=== PATIENT | female | born 1965 | race Caucasian/White ===

== ENCOUNTER 2016-12-31 16:21 | Emergency (ER) | payer SELFPAY ==
[~2016-12-31] VITALS: Ht 175.3 cm; Wt 61.2 kg
[~2016-12-31 16:21] MED LIST: CIPR500T78 PO; CYCL10TA9 PO; IBUP-1773 PO; KETO-22 PO; ORPH100T PO; PHEN200T27 PO; TRM50T PO
[2016-12-31 17:05] LABS: KETONES,URINE NEGATIVE (NEGATIVE); LEUKOCYTE ESTERASE ,URINE NEGATIVE (NEGATIVE); NITRITE,URINE POSITIVE (NEGATIVE); PH,URINE 6 (5-9); PROTEIN,URINE NEGATIVE (NEGATIVE); UROBILINOGEN,URINE 4 MG/DL (NORMAL)
--- NOTE | 2016-12-31 17:06 | ED GU-Female ---
General Chief Complaint: -Female Stated Complaint: BACK PAIN Nursing Triage Note: PT CO OF R FLANK AND LOWER ABD PAIN STARTED EARLIER TODAY RATES PAIN 04/04 Nursing Sepsis Screen: No Definite Risk Source: patient, RN notes reviewed Exam Limitations: no limitations (YENIFER LAMBERT DO) History of Present Illness Time seen by provider: 17:06 Timing/Duration: this morning (YENIFER LAMBERT DO) Allergies and Home Medications Allergies Coded Allergies: No Known Drug Allergies (Unverified , 06/21/11) Home Medications Cefdinir 300 Mg Capsule, 300 MG PO BID, #20 Ref 0 Prescribed by: YENIFER LAMBERT on 12/31/16 1730 Hydrocodone/Acetaminophen 1 Each Tablet, 1 EACH PO Q6H, #20 Ref 0 Prescribed by: YENIFER LAMBERT on 12/31/16 1730 Ibuprofen 600 Mg Tablet, 600 MG PO 3 times a day PRN for PAIN, #90 Prescribed by: MANNY FIELD on 07/07/16 1042 Past Rmhywhc-Mltbaa-Gadrxp Hx Patient Social History Alcohol Use: Denies Use Recreational Drug Use: No Type Used: Electronic/Vapor Recent Foreign Travel: No Contact w/Someone Who Travel: No Recent Infectious Disease Expo: No Recent Hopitalizations: No (YENIFER LAMBERT DO) Surgeries HX Surgeries: Yes (2003 breast/partial hyst) (YENIFER LAMBERT DO) Respiratory Hx Respiratory Disorders: No (YENIFER LAMBERT DO) Cardiovascular Hx Cardiac Disorders: No (YENIFER LAMBERT DO) Neurological Hx Neurological Disorders: No (YENIFER LAMBERT DO) 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 System Hx 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 Disorders: No Sexually Transmitted Disease: No 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/AIDS: 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 (YENIFER LAMBERT DO) Genitourinary Hx Genitourinary Disorders: No (YENIFER LAMBERT DO) Gastrointestinal Hx Gastrointestinal Disorders: No (YENIFER LAMBERT DO) Musculoskeletal Hx Musculoskeletal Disorders: No (YENIFER LAMBERT DO) Endocrine Hx Endocrine Disorders: No (YENIFER LAMBERT DO) HEENT HX ENT Disorders: No Loss of Vision: Denies Hearing Impairment: Denies (YENIFER LAMBERT DO) Cancer Cancer: Breast (YENIFER LAMBERT DO) Psychosocial Hx Psychiatric Problems: No (YENIFER LAMBERT DO) Integumentary HX Skin/Integumentary Disorder: No (YENIFER LAMBERT DO) Blood Transfusions Hx Blood Disorders: No Adverse Reaction to a Blood Tr: No (YENIFER LAMBERT DO) Family Medical History Significant Family History: No Pertinent Family Hx (YENIFER LAMBERT DO) Physical Exam Vital Signs Vital Sign - Last 12Hours 12/31/16 16:45 Temp 98.0 Pulse 81 Resp 20 B/P (MAP) 120/84 Pulse Ox 98 (MELO MACIAS DO) Vital Signs Capillary Refill : Less Than 3 Seconds (YENIFER LAMBERT DO) Progress/Results/Core Measures Results/Orders Lab Results Laboratory Tests Test 12/31/16 16:45 Range/Units Urine Color RED H Urine Clarity CLEAR Urine pH 6 5-9 Urine Specific [place] 1.020 1.016-1.022 Urine Protein NEGATIVE NEGATIVE Urine Glucose (UA) NEGATIVE NEGATIVE Urine Ketones NEGATIVE NEGATIVE Urine Nitrite POSITIVE H NEGATIVE Urine Bilirubin 2+ H NEGATIVE Urine Urobilinogen 4 H NORMAL MG/DL Urine Leukocyte Esterase NEGATIVE NEGATIVE Urine RBC (Auto) NEGATIVE NEGATIVE Urine RBC NONE /HPF Urine WBC RARE /HPF Urine Squamous Epithelial Cells 2-5 /HPF Urine Crystals NONE /LPF Urine Bacteria TRACE /HPF Urine Casts NONE /LPF Urine Mucus NEGATIVE /LPF Urine Culture Indicated YES (MELO MACIAS DO) Medications Given in ED Current Medications Medications Dose Ordered Sig/Edwar Route Start Time Stop Time Status Last Admin Dose Admin Ketorolac Tromethamine 60 mg ONCE ONCE IM 12/31/16 17:30 12/31/16 17:31 DC 12/31/16 17:37 60 MG (CHANDLER MACIASA Tylor MCDONALD) Vital Signs/I&O Vital Sign - Last 12Hours 12/31/16 12/31/16 16:45 18:37 Temp 98.0 98.0 Pulse 81 81 Resp 20 20 B/P (MAP) 120/84 Pulse Ox 98 98 (CHANDLER MACIASA Tylor MCDONALD) Blood Pressure Mean: 96 Progress Note : Progress Note 1800--ASSUMED CARE FROM DR. LAMBERT, CT RESULTS PENDING. IF NEGATIVE, ALL DISCHARGE INSTRUCTIONS AND RX'S HAVE BEEN COMPLETED BY DR. LAMBERT PRIOR TO MY ARRIVAL. (MELO MACIAS DO) Diagnostic Imaging Comments CT ABDOMEN/PELVIS--NO ACUTE PROCESS, CONSTIPATION, PER RADIOLOGIST REPORT @ 1825 Reviewed: Reviewed by Me (MELO MACIAS DO) Departure Impression Impression: Primary Impression: Urinary tract infection Additional Impression: Abdominal pain Disposition: HOME, SELF-CARE Condition: Stable Departure-Patient Inst. Referrals: DESI MITCHELL MD Patient Instructions: Urinary Tract Infection, Adult (DC) Scripts Hydrocodone/Acetaminophen (Hydrocodon-Acetaminophn 10-325) 1 Each Tablet 1 EACH PO Q6H for Pain, #20 TAB 0 Refills Prov: YENIFER LAMBERT DO 12/31/16 Cefdinir (Cefdinir) 300 Mg Capsule 300 MG PO BID for UTI, #20 CAP 0 Refills Prov: YENIFER LAMBERT DO 12/31/16 YENIFER LAMBERT DO December 31, 2016 17:06 MELO MACIAS DO December 31, 2016 18:40
[2016-12-31 17:16] LABS: BILIRUBIN,URINE 2+ (NEGATIVE); WBC,URINE RARE /HPF
[2016-12-31] MEDS ORDERED: HYDR-3820 PO (17:30)
[2016-12-31] MEDS ORDERED: KETOROLAC 60 MG/2 ML VIAL IM ONE (17:30)
[2016-12-31] MEDS ORDERED: CEFD300C3 PO (17:30)
--- NOTE | 2016-12-31 18:17 | Diagnostic Imaging Report ---
PROCEDURE: CT urinary tract, rule out kidney stone. TECHNIQUE: Multiple contiguous axial images were obtained through the abdomen and pelvis without the use of intravenous contrast. DATE: December 31, 2016. COMPARISON: Abdominal radiographs, October 23, 2013. CT abdomen and pelvis, October 23, 2013. INDICATION: A 51-year-old female, left lower quadrant abdominal and back pain. FINDINGS: There are limitations for parenchymal organ assessment as well as for assessment of the vasculature relating to the lack of intravenous contrast. The visualized portions of the lung bases are clear. The heart is not enlarged. There is no pericardial effusion. The liver is normal in size and contour. The gallbladder is contracted. There is no intrahepatic or extrahepatic bile duct dilation. Very limited evaluation of the pancreatic parenchyma is grossly unremarkable. The spleen is not enlarged. The adrenal glands are unremarkable. Unremarkable noncontrast appearance of the renal parenchyma. The urinary collecting systems are not distended. There is no identified renal or ureteral stone. There are pelvic calcifications, likely relating to phleboliths. The urinary bladder is unremarkable in appearance. The uterus is not seen and may be surgically absent. There is a moderate-volume stool within the rectum and distal sigmoid colon which are mildly distended. There is zvkb-br-eyqezhgo additional volume colonic stool. The additional segments of the intestinal tract are not distended. The appendix is best seen on axial image 111. There is no evidence of acute appendicitis. There is a fat-containing umbilical hernia. There is no free intraperitoneal air. There is no drainable fluid collection. There is no free pelvic fluid. There is no identified abnormally enlarged lymph node within the abdomen or pelvis which meets CT size criteria for adenopathy. There is transitional lumbosacral anatomy with partial lumbarization of L5. 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 If spinal intervention is to be performed in the future, recommend careful correlation with levels. There is no identified acute bony abnormality. There is gas in the left gluteal subcutaneous tissues which may relate to a subcutaneous injection. Recommend correlation clinically. IMPRESSION: CT ABDOMEN AND PELVIS. 1. No identified acute abnormality within the abdomen or pelvis. 2. Gas in the left gluteal subcutaneous tissues which may relate to subcutaneous injection. Recommend correlation clinically. 3. Moderate-volume stool in the rectum and distal sigmoid colon which are mildly distended. Additional qwao-lv-spycbuov-volume colonic stool. 4. Transitional lumbosacral anatomy. Dictated by: Dictated on workstation # [id number]
[2016-12-31 18:37] VITALS: BP 120/84
== END 2016-12-31 18:38 | disposition home or self-care (01) ==
LOC: EDUNIT# 16:21 → ER 16:24
DX: R10.31 Right lower quadrant pain (principal); N39.0 Urinary tract infection, site not specified; K59.00 Constipation, unspecified
CPT/HCPCS: 74176; 81000; 87088; 96372; 99282

== ENCOUNTER 2017-05-04 11:13 | Emergency (ER) | payer OTHER ==
[~2017-05-04] VITALS: Ht 172.7 cm; Wt 65.8 kg
[~2017-05-04 11:13] MED LIST changes: +CEFD300C3 PO; +HYDR-3820 PO
[2017-05-04] MEDS ORDERED: diphenhydrAMINE 50 MG/ML INJ (BENADRYL) ONE (11:18)
[2017-05-04] MEDS ORDERED: methylPREDNISolone 125 MG (Solu-MEDROL) VIAL ONE (11:18)
[2017-05-04] MEDS ORDERED: FAMOTIDINE 20MG/2ML IV (PEPCID) ONE (11:18)
[2017-05-04] MEDS ORDERED: EPINEPHrine INJECTION 1 MG/ML AMP ONE (11:18)
[2017-05-04] MEDS ORDERED: diphenhydrAMINE 50 MG/ML INJ (BENADRYL) IVP ONE (11:30)
[2017-05-04] MEDS ORDERED: methylPREDNISolone 125 MG (Solu-MEDROL) VIAL IVP ONE (11:30)
[2017-05-04] MEDS ORDERED: EPINEPHrine INJECTION 1 MG/ML AMP IM ONE (11:30)
[2017-05-04] MEDS ORDERED: FAMOTIDINE 20MG/2ML IV (PEPCID) IVP ONE (11:30)
--- NOTE | 2017-05-04 12:00 | ED Integumentary General ---
General Chief Complaint: Allergic Reaction Stated Complaint: ALLERGIC RXN Source: patient History of Present Illness Time seen by provider: 11:20 Initial Comments PT ARRIVES VIA POV FROM HOME C/O GENERALIZED RASH, ITCHING X 15 MINUTES C/O THROAT TIGHTNESS AND SHORTNESS OF BREATH ALSO STATES HER EYES HURT/BURN SYMPTOMS BEGAN A FEW MINUTES AFTER TAKING BACTRIM--STATES SHE WOKE UP WITH LEFT FLANK PAIN AND THOUGHT SHE WAS HAVING A UTI, SO TOOK "LEFTOVER" BACTRIM FROM PREVIOUS UTI. ALSO TOOK AND ADVIL BEFORE SHE TOOK THE BACTRIM. NO SWELLING TO TONGUE, LIPS, HANDS OR FEET NO HISTORY OF SIMILAR NO PCP Allergies and Home Medications Allergies Coded Allergies: sulfamethoxazole (Verified Allergy, Unknown, anaphylaxis, 05/04/17) trimethoprim (Verified Allergy, Unknown, anaphylaxis, 05/04/17) Home Medications Cefdinir 300 Mg Capsule, 300 MG PO BID, #20 Ref 0 Prescribed by: YENIFER LAMBERT on 12/31/16 1730 Hydrocodone/Acetaminophen 1 Each Tablet, 1 EACH PO Q6H, #20 Ref 0 Prescribed by: YENIFER LAMBERT on 12/31/16 1730 Ibuprofen 600 Mg Tablet, 600 MG PO 3 times a day PRN for PAIN, #90 Prescribed by: MANNY FIELD on 07/07/16 1042 Nitrofurantoin Monohyd/M-Cryst 100 Mg Capsule, 100 MG PO BID, #20 Prescribed by: MELO MACIAS on 05/04/17 1306 Prednisone 10 Mg Tab, 40 MG PO DAILY, #12 Prescribed by: MELO MACIAS on 05/04/17 1239 Constitutional: no symptoms reported EENTM: see HPI, No nose congestion Respiratory: see HPI, short of breath, No wheezing Cardiovascular: no symptoms reported Gastrointestinal: no symptoms reported Genitourinary: no symptoms reported Musculoskeletal: see HPI, back pain Skin: see HPI, pruritus, rash Psychiatric/Neurological: No Symptoms Reported Endocrine: No Symptoms Reported Hematologic/Lymphatic: No Symptoms Reported Past Djkuwpv-Pgpikh-Ycaxmc Hx Patient Social History Alcohol Use: Denies Use Recreational Drug Use: No Smoking Status: Current Everyday Smoker Type Used: Electronic/Vapor Recent Hopitalizations: No Surgeries History of Surgeries: Yes (2003 BREAST LUMPECTOMY; HYST/BSO) Surgeries: Breast, Hysterectomy, Oophorectomy Respiratory History of Respiratory Disorde: No Cardiovascular History of Cardiac Disorders: No Neurological History of Neurological Disord: No 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 System Hx 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 Disorders: No Sexually Transmitted Disease: No 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 Genitourinary History of Genitourinary Disor: Yes Genitourinary Disorders: Bladder Infection Gastrointestinal History of Gastrointestinal Di: No Musculoskeletal History of Musculoskeletal Dis: No Endocrine History of Endocrine Disorders: No HEENT Loss of Vision: Denies Hearing Impairment: Denies Cancer History of Cancer: Yes (BREAST CANCER 2003--S/P LUMPECTOMY + RADIATION.) Cancer: Breast Type of Tx Receive: Radiation, Surgical Intervention Psychosocial History of Psychiatric Problem: No Integumentary History of Skin or Integumenta: No Blood Transfusions History of Blood Disorders: No Adverse Reaction to a Blood Tr: No Family Medical History Significant Family History: No Pertinent Family Hx Physical Exam Vital Signs Vital Sign - Last 12Hours 05/04/17 11:14 Temp 98.7 Pulse 130 Resp 18 B/P (MAP) 138/70 Pulse Ox 98 Capillary Refill : General Appearance: WD/WN, no apparent distress HEENT: PERRL/EOMI, normal ENT inspection, TMs normal, pharynx normal Neck: normal inspection Cardiovascular: tachycardia Respiratory: normal breath sounds, no respiratory distress, no accessory muscle use Gastrointestinal: normal bowel sounds, non tender, soft Back: normal inspection Extremities: no pedal edema, normal capillary refill Neurologic/Psychiatric: 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 ) Progress/Results/Core Measures Results/Orders Lab Results Laboratory Tests Test 05/04/17 12:40 Range/Units Urine Color YELLOW Urine Clarity SLIGHTLY CLOUDY Urine pH 8 5-9 Urine Specific [place] 1.015 L 1.016-1.022 Urine Protein NEGATIVE NEGATIVE Urine Glucose (UA) NEGATIVE NEGATIVE Urine Ketones NEGATIVE NEGATIVE Urine Nitrite NEGATIVE NEGATIVE Urine Bilirubin NEGATIVE NEGATIVE Urine Urobilinogen NORMAL NORMAL MG/DL Urine Leukocyte Esterase 2+ H NEGATIVE Urine RBC (Auto) NEGATIVE NEGATIVE Urine RBC NONE /HPF Urine WBC RARE /HPF Urine Crystals NONE /LPF Urine Amorphous Sediment RARE MASOOD PHOSPHATE H /LPF Urine Bacteria TRACE /HPF Urine Casts NONE /LPF Urine Mucus NEGATIVE /LPF Urine Culture Indicated NO My Orders Orders - MELO MACIAS DO Diphenhydramine Injection (Benadryl Inje (05/04/17 11:18) Epinephrine 1 Mg Injection (Adrenalin I (05/04/17 11:18) Methylprednisolone Sod Succ (Solu-Medrol (05/04/17 11:18) Famotidine Injection (Pepcid Injection) (05/04/17 11:18) Saline Lock/Iv-Start (05/04/17 11:21) Epinephrine 1 Mg Injection (Adrenalin I (05/04/17 11:30) Methylprednisolone Sod Succ (Solu-Medrol (05/04/17 11:30) Diphenhydramine Injection (Benadryl Inje (05/04/17 11:30) Famotidine Injection (Pepcid Injection) (05/04/17 11:30) Saline Lock/Iv-Start (05/04/17 11:21) Monitor-Rhythm Ecg Trace Only (05/04/17 11:21) Ua Culture If Indicated (05/04/17 11:54) Urine Culture (05/04/17 13:05) Medications Given in ED Current Medications Medications Dose Ordered Sig/Edwar Route Start Time Stop Time Status Last Admin Dose Admin Diphenhydramine HCl 50 mg ONCE ONCE IVP 05/04/17 11:30 05/04/17 11:31 DC 05/04/17 11:43 50 MG Epinephrine HCl 0.3 mg ONCE ONCE IM 05/04/17 11:30 05/04/17 11:31 DC 05/04/17 11:37 0.3 MG Famotidine 40 mg ONCE ONCE IVP 05/04/17 11:30 05/04/17 11:31 DC 05/04/17 11:43 40 MG Methylprednisolone Sodium Succinate 125 mg ONCE ONCE IVP 05/04/17 11:30 05/04/17 11:31 DC 05/04/17 11:44 125 MG Vital Signs/I&O Vital Sign - Last 12Hours 05/04/17 05/04/17 11:14 11:37 Temp 98.7 96.5 Pulse 130 Resp 18 B/P (MAP) 138/70 Pulse Ox 98 Progress Note : Progress Note ALL SYMPTOMS COMPLETELY RESOLVED AT DISMISSAL Departure Impression Impression: Primary Impression: ALLERGIC REACTION TO BACTRIM Additional Impression: Urinary tract infectious disease Disposition: HOME, SELF-CARE Condition: Improved Departure-Patient Inst. Referrals: NO,LOCAL PHYSICIAN (PCP/Family) Primary Care Physician Patient Instructions: Drug Allergy, Urinary Tract Infection, Adult (DC) Add. Discharge Instructions: LOTS OF CLEAR LIQUIDS CLARITIN 10 MG IN AM. BENADRYL 50 MG IN PM NEEDED FOR RASH AND ITCHING STOP BACTRIM FOLLOW UP WITH DR OF CHOICE TOMORROW IF NO BETTER RETURN TO ER IF WORSE All discharge instructions reviewed with patient and/or family. Voiced understanding. Scripts Nitrofurantoin Monohyd/M-Cryst (Macrobid 100 mg Capsule) 100 Mg Capsule 100 MG PO BID, #20 CAP Prov: MELO MACIAS DO 05/04/17 Prednisone (Prednisone) 10 Mg Tab 40 MG PO DAILY, #12 TAB Prov: MELO MACIAS DO 05/04/17 MELO MACIAS DO May 04, 2017 12:00
[2017-05-04] MEDS ORDERED: PRD10T PO (12:39)
[2017-05-04 12:45] LABS: BILIRUBIN,URINE NEGATIVE (NEGATIVE); KETONES,URINE NEGATIVE (NEGATIVE); LEUKOCYTE ESTERASE ,URINE 2+ (NEGATIVE); NITRITE,URINE NEGATIVE (NEGATIVE); PH,URINE 8 (5-9); PROTEIN,URINE NEGATIVE (NEGATIVE); UROBILINOGEN,URINE NORMAL (NORMAL)
[2017-05-04 12:53] LABS: WBC,URINE RARE /HPF
[2017-05-04] MEDS ORDERED: NITR-65 PO (13:06)
[2017-05-04 13:20] VITALS: BP 118/68
== END 2017-05-04 13:20 | disposition home or self-care (01) ==
LOC: EDUNIT# 11:13 → ER 11:14
DX: T36.8X1A Poisoning by other systemic antibiotics, accidental (unintentional), initial encounter (principal); N39.0 Urinary tract infection, site not specified; F17.290 Nicotine dependence, other tobacco product, uncomplicated; Z85.3 Personal history of malignant neoplasm of breast; Z92.3 Personal history of irradiation; Z90.710 Acquired absence of both cervix and uterus
CPT/HCPCS: 81000; 87088; 87186; 93041; 96372; 96374; 96375

== ENCOUNTER → 2017-06-05 | Outpatient (CLI) | payer OTHER ==
[~2017-06-05] MED LIST changes: +NITR-65 PO; +PRD10T PO
--- NOTE | 2017-06-06 16:32 | Diagnostic Imaging Report ---
EXAMINATION: Bilateral screening mammogram 2D views with tomosynthesis. The current study was also evaluated with a Computer Aided Detection (CAD) system. INDICATION: Screening. No current complaints stated on the questionnaire. COMPARISON: 05/02/16. FINDINGS: The breasts are composed of heterogenously dense parenchyma which may decrease mammographic sensitivity. There are postsurgical changes seen in the left breast. Biopsy clip in the upper aspect of the right breast is seen. In the central posterior aspect of the left CC projection there is a 1 cm rounded asymmetry that is persistent on the tomographic evaluation with no definitive correlate on the right MLO view. The left breast demonstrates no significant change. IMPRESSION: Focal compression views and ultrasound evaluation for asymmetry along the posterior central aspect of the right CC projection. ACR BI-RADS Category 0: Incomplete. (Needs additional imaging evaluation). Result letter will be mailed to the patient. Note: At least 10% of breast cancer is not imaged by mammography. Dictated by: Dictated on workstation # [id number]
== END ==
LOC: RAD 15:00
PROVIDERS: ATTEND Nurse Practitioner Family
DX: Z12.31 Encounter for screening mammogram for malignant neoplasm of breast (principal)
CPT/HCPCS: 77067

== ENCOUNTER → 2017-06-17 | Outpatient (CLI) | payer OTHER ==
--- NOTE | 2017-06-17 20:30 | Diagnostic Imaging Report ---
EXAM: Right breast diagnostic mammogram. The current study was also evaluated with a Computer Aided Detection (CAD) system. INDICATION: Asymmetry along the CC projection central aspect. FINDINGS: Focal compression view demonstrates persistence of asymmetry of the central posterior aspect of the right CC projection with no definitive correlative on this collateral view. The asymmetry persists on tomography as well without definitive mass confirmed. IMPRESSION: Persistent oval asymmetry along the central posterior aspect of the right CC projection. Ultrasound evaluation pending. BI-RADS 0. ACR BI-RADS Category 0: Incomplete. (Needs additional imaging evaluation). Result letter will be mailed to the patient. Note: At least 10% of breast cancer is not imaged by mammography. Dictated by: Dictated on workstation # [id number]
--- NOTE | 2017-06-17 21:36 | Diagnostic Imaging Report ---
EXAM: Right breast ultrasound. INDICATION: Asymmetry seen in mammography in the right breast central aspect. FINDINGS: At the 12 o'clock zone, there is a simple cyst measuring 1.1 cm and adjacent smaller simple cysts also seen. This is located at 3 cm from the nipple. At the 9:30 o'clock position, 2 cm from the nipple, there is a circumscribed hypoechoic lesion with through-transmission and no internal vascularity suggestive of a cyst with internal debris. There is otherwise no suspicious mass noted in the 4 quadrants and retroareolar region of the right breast. IMPRESSION: Cysts at 12 o'clock zone probably explain the mammographic asymmetry with no suspicious mass identified. Annual screening mammogram is recommended. BI-RADS 2. ACR BI-RADS Category 2: Benign findings. Result letter will be mailed to the patient. Note: At least 10% of breast cancer is not imaged by mammography. Dictated by: Dictated on workstation # [id number]
== END ==
LOC: RAD 14:00
PROVIDERS: ATTEND Nurse Practitioner Family
DX: N60.01 Solitary cyst of right breast (principal)
CPT/HCPCS: 76641

== ENCOUNTER 2018-04-28 17:23 | Emergency (ER) | payer OTHER ==
[~2018-04-28] VITALS: Ht 175.3 cm; Wt 63.5 kg
--- OUTSIDE RECORDS SUMMARY | 2018-04-28 17:31 | XMS REPORT ---
Author Author SUSANA BELLAMY [facility] Address [address] [place] [address] Care Team Providers Care Deburring Technician Name Role Phone SUSANA BELLAMY Unavailable PROBLEMS Type Condition ICD9-CM Code [id number] Code Onset Dates Condition Status SNOMED Code Problem Other chronic pain G89.29 Active 36237698 Problem Pain in joint, pelvic region and thigh 719.45 Active 441711711 ALLERGIES Substance Reaction Event Type Date Status Sulfamethoxazole Unknown Drug Allergy Jul, Active ENCOUNTERS Encounter Location Date Diagnosis [place] [id number] [address] Aug, 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 and Chondromalacia, right knee M94.261 [facility] [address] [place] [id number] [place] [address] Jul, [facility] [id number] [place] [address] Jul, [facility] [id number] [place] [address] Jul, Pain in right knee M25.561 [facility] [id number] [place] [address] Jul, Pain in right knee M25.561 [facility] [address] [address] Jul, [facility] [address] [id number] [place] [address] Jul, Pain in right knee M25.561 and Other chronic pain G89.29 [facility] [address] [place] [address] 07 Sep, 2016 Dermatofibroma D23.9 [facility] [address] [id number] [place] [address] 17 Aug, 2016 Dermatofibroma D23.9 [facility] [address] [place] [address] 08 Oct, 2015 Nevoid hyperpigmentation L81.9 ; Seborrheic keratoses L82.1 and Dermatofibroma D23.9 [facility] [address] [id number] [place] [address] 16 Sep, 2015 Dermatofibroma D23.9 and Skin tag L91.8 [facility] [address] [id number] [place] [address] 14 Aug, 2015 Facial skin lesion L98.9 [facility] [id number] [place] [address] 14 Nov, 2014 [facility] [id number] [place] [address] 13 Nov, 2014 [facility] [id number] [place] [address] Sep, [facility] [address] [address] Sep, [facility] [address] [place] [address] Oct, [facility] [address] [place] [address] Oct, [facility] [id number] [place] [address] Oct, [facility] [address] [place] [address] Oct, [facility] [id number] [place] [address] Sep, [facility] [address] [facility] [id number], [place] [address] Sep, [facility] [address] [facility] [id number], [place] [address] Jul, [facility] [address] [facility] [id number], [place] [address] Jun, [facility] [address] [facility] [id number], [place] [address] Jun, [facility] [address] [facility] [id number], [place] [address] Jun, IMMUNIZATIONS No Known Immunizations SOCIAL HISTORY Never Assessed REASON FOR VISIT Right knee pain x 1 month. ALETHEA Raymond. PLAN OF CARE Activity Details Follow Up as scheduled Reason: VITAL SIGNS Height 69 in 2017-07-30 Weight 151.4 lbs 2017-07-30 Temperature 98.4 degrees Fahrenheit 2017-07-30 Heart Rate 86 bpm 2017-07-30 Respiratory Rate 16 2017-07-30 BMI 22.36 kg/m2 2017-07-30 Blood pressure systolic 102 mmHg 2017-07-30 Blood pressure diastolic 64 mmHg 2017-07-30 MEDICATIONS Medication Instructions Dosage Frequency Start Date End Date Duration Status PredniSONE 20 MG Orally Once a day 3 tabs daily X 3 days, then 2 a day X 2 days, then one daily X 2 days 24h Jul, Jul, 6 days Active Ibuprofen 600 mg take 1 tablet by Oral route 3 times per day with food PRN for pain Sep, Active Flexeril 10 mg 1 tablet by Oral route 3 times per day PRN muscle spasm. Sep, Not-Taking RESULTS No Results PROCEDURES No Known procedures INSTRUCTIONS MEDICATIONS ADMINISTERED No Known Medications MEDICAL (GENERAL) HISTORY Type Description Date Medical History breast cancer; completed treatment Surgical History hysterectomy Surgical History left breast mastectomy Hospitalization History surgery Hospitalization History
--- OUTSIDE RECORDS SUMMARY | 2018-04-28 17:31 | XMS REPORT ---
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 and Chondromalacia, right knee M94.261 [facility] [id number] [place] [address] 41175- 1928 Jul, [facility] [address] [address] Jul, [facility] [id number] [place] [address] 23051- 9275 Jul, Pain in right knee M25.561 [facility] [id number] [place] [address] 48192 -3294 Jul, Pain in right knee M25.561 [facility] [id number] [place] [address] 41795- 0734 Jul, [facility] [address] 40662 [address]8395 Jul, Pain in right knee M25.561 and Other chronic pain G89.29 [facility] [address] [address]- 3287 Sep, Dermatofibroma D23.9 [facility] [address], [place] [address] 07[address] Aug, Dermatofibroma D23.9 [facility] [address], [place] [address] 3[address] Oct, Nevoid hyperpigmentation L81.9 ; Seborrheic keratoses L82.1 and Dermatofibroma D23.9 [facility] [id number] [place] [address] 03053- 1123 16 Sep, 2015 Dermatofibroma D23.9 and Skin tag L91.8 [facility] [id number] [place] [address] 41578- 4539 14 Aug, 2015 Facial skin lesion L98.9 [facility] [id number] [address] 6[address] Nov, [facility] [id number] [place] [address] 75479- 2067 Nov, [facility] [id number] [place] [address] 29427- 6966 Sep, [facility] [id number] [place] [address] 64198- 3638 Sep, [facility] [address], [place] [address] 4384 Oct, [facility] [address], [place] [address]- 3781 Oct, [facility] [address], [place] [address]- 7015 Oct, [facility] [id number] [place] [address] 64533- 2509 Oct, [facility] [address], [place] [address]- 5394 Sep, [facility] [address] [place] [address] [address]- 9976 Sep, [facility] [address] [facility] [id number] [address] 8395 Jul, [facility] [address] [place] [id number] [address]60 Jun, [facility] [address] [facility] [id number], [place] [address] 6112 Jun, [facility] [address] [facility] [id number], [place] [address] 9511 Jun, IMMUNIZATIONS No Known Immunizations SOCIAL HISTORY Never Assessed REASON FOR VISIT PLAN OF CARE VITAL SIGNS MEDICATIONS Unknown Medications RESULTS No Results PROCEDURES Procedure Date Ordered Result Body Site X-RAY EXAM OF KNEE, 3 Aug 01, 2017 INSTRUCTIONS MEDICATIONS ADMINISTERED No Known Medications MEDICAL (GENERAL) HISTORY Type Description Date Medical History breast cancer; completed treatment Surgical History hysterectomy Surgical History left breast mastectomy Hospitalization History surgery Hospitalization History
--- OUTSIDE RECORDS SUMMARY | 2018-04-28 17:31 | XMS REPORT ---
Author Author YENIFER DAVIS [facility] Address [address] [place] [address] Care Team Providers Care Machinist Supervisor Name Role Phone YENIFER DAVIS Unavailable PROBLEMS Type Condition ICD9-CM Code [id number] Code Onset Dates Condition Status SNOMED Code Problem Pain in joint, pelvic region and thigh 719.45 Active [id number] ALLERGIES Substance Reaction Event Type Date Status N.K.D.A. Unknown Non Drug Allergy Aug, Unknown SOCIAL HISTORY No smoking Hx information available PLAN OF CARE VITAL SIGNS Height 69 in 2016-09-11 Weight 140 lbs 2016-09-11 Heart Rate 76 bpm 2016-09-11 Respiratory Rate 16 2016-09-11 BMI 20.67 kg/m2 2016-09-11 Blood pressure systolic 110 mmHg 2016-09-11 Blood pressure diastolic 70 mmHg 2016-09-11 MEDICATIONS Medication Instructions Dosage Frequency Start Date End Date Duration Status Ibuprofen 600 mg take 1 tablet by Oral route 3 times per day with food PRN for pain Sep, Active RESULTS No Results PROCEDURES Procedure Date Ordered Related Diagnosis Body Site CRYOTHERAPY OF SKIN 2016-09-11 N/A CRYOTHERAPY OF SKIN Sep 11, 2016 Office Visit, Est Pt., Level 2 Sep 11, 2016 IMMUNIZATIONS No Known Immunizations
--- OUTSIDE RECORDS SUMMARY | 2018-04-28 17:31 | XMS REPORT ---
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 and Chondromalacia, right knee M94.261 [facility] [address] [id number] [place] [address] 65164- 4479 Jul, [facility] [address] [address] Jul, [facility] [address] [place] [address] [id number] [place] [address] 74149- 5941 Jul, Pain in right knee M25.561 [facility] [address] [id number] [place] [address] 17831 -2546 Jul, Pain in right knee M25.561 [facility] [address] [id number] [place] [address] 13406- 6875 Jul, [facility] [address] 34454 -0937 Jul, Pain in right knee M25.561 and Other chronic pain G89.29 [facility] [address] 77008- 3455 Sep, Dermatofibroma D23.9 [facility] [address], [place] [address]- 7538 Aug, Dermatofibroma D23.9 [facility] [address], [place] [address]- 1571 Oct, Nevoid hyperpigmentation L81.9 ; Seborrheic keratoses L82.1 and Dermatofibroma D23.9 [facility] [address] [id number] [place] [address] 17435- 4599 16 Sep, 2015 Dermatofibroma D23.9 and Skin tag L91.8 [facility] [address] [id number] [place] [address] 12169- 7513 14 Aug, 2015 Facial skin lesion L98.9 [facility] [address] [place] [id number], [place] [address]- 4190 Nov, [facility] [address] [id number] [place] [address] 26234- 2395 Nov, [facility] [address] [place] [address] 66886- 8556 Sep, [facility] [address] [place] [address] 66475- 6716 Sep, [facility] [address], [place] [address]- 3899 Oct, [facility] [address], [place] [address]- 5212 Oct, [facility] [address], [place] [address]- 8119 Oct, [facility] [address] [place] [id number] [place] [address] 53789- 4350 Oct, [facility] [address], [place] [address]- 4491 Sep, [facility] [address] [place] [address] [address]- 7041 Sep, [facility] [address] [facility] [id number], [place] [address]- 3914 Jul, [facility] [address] [id number] [address] Jun, [facility] [address] [facility] [id number], [place] [address]- 3142 Jun, [facility] [address] [facility] [id number], [place] [address]- 3189 Jun, IMMUNIZATIONS No Known Immunizations SOCIAL HISTORY Never Assessed REASON FOR VISIT PLAN OF CARE VITAL SIGNS MEDICATIONS Unknown Medications RESULTS No Results PROCEDURES No Known procedures INSTRUCTIONS MEDICATIONS ADMINISTERED No Known Medications MEDICAL (GENERAL) HISTORY Type Description Date Medical History breast cancer; completed treatment Surgical History hysterectomy Surgical History left breast mastectomy Hospitalization History surgery Hospitalization History
--- OUTSIDE RECORDS SUMMARY | 2018-04-28 17:31 | XMS REPORT ---
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 and Chondromalacia, right knee M94.261 [facility] [address] [place] [address] [id number] [place] [address] 33733- 0588 Jul, [facility] [address] [address]20[address] Jul, [facility] [address] [place] [id number] [place] [address] 30044- 3010 Jul, Pain in right knee M25.561 [facility] [address] [place] [id number] [place] [address] 70598 -7809 Jul, Pain in right knee M25.561 [facility] [address] [place] [id number] [place] [address] 14114- 7088 Jul, [facility] [address] 59447 -0405 Jul, Pain in right knee M25.561 and Other chronic pain G89.29 [facility] [address] [address]- 7095 Sep, Dermatofibroma D23.9 [facility] [address] [address]- 7392 Aug, Dermatofibroma D23.9 [facility] [address] [address]- 1563 Oct, Nevoid hyperpigmentation L81.9 ; Seborrheic keratoses L82.1 and Dermatofibroma D23.9 [facility] [address] [place] [id number] [place] [address] 32632- 1543 16 Sep, 2015 Dermatofibroma D23.9 and Skin tag L91.8 [facility] [address] [place] [id number] [place] [address] 27277- 2118 14 Aug, 2015 Facial skin lesion L98.9 [facility] [address] [id number] [address]- 8536 Nov, [facility] [address] [place] [id number] [place] [address] 30609- 4003 Nov, [facility] [address] [place] [address] 41620- 0880 Sep, [facility] [address] [place] [address] 84575- 1040 Sep, [facility] [address] [address]- 2309 Oct, [facility] [address] [address]- 6836 Oct, [facility] [address] [address]- 3347 Oct, [facility] [address] [place] [id number] [place] [address] 56701- 5021 Oct, [facility] [address] [address]- 3824 Sep, [facility] [address] [place] [address] [address]- 3502 Sep, [facility] [address] [facility] [id number], [place] [address]- 8848 Jul, [facility] [address] [place] [id number] 8598 Jun, [facility] [address] [facility] [id number] [address]- 7980 Jun, [facility] [address] [facility] [id number] [address]- 6352 Jun, IMMUNIZATIONS No Known Immunizations SOCIAL HISTORY Never Assessed REASON FOR VISIT Xray (walk-in) MHill RT(R) PLAN OF CARE VITAL SIGNS MEDICATIONS Unknown Medications RESULTS Name Result Date Reference Range Xray : Knee, Right 3 views (IN HOUSE) 2017-08-01 PROCEDURES Procedure Date Ordered Result Body Site X-RAY EXAM OF KNEE, 3 Aug 01, 2017 INSTRUCTIONS MEDICATIONS ADMINISTERED No Known Medications MEDICAL (GENERAL) HISTORY Type Description Date Medical History breast cancer; completed treatment Surgical History hysterectomy Surgical History left breast mastectomy Hospitalization History surgery Hospitalization History
--- OUTSIDE RECORDS SUMMARY | 2018-04-28 17:31 | XMS REPORT ---
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 and Chondromalacia, right knee M94.261 [facility] [id number] [place] [address] 01073- 3913 Jul, [facility] [address] [address] -[address]99 Jul, [facility] [id number] [place] [address] 23116- 3005 Jul, Pain in right knee M25.561 [facility] [id number] [place] [address] 24088 -5864 Jul, Pain in right knee M25.561 [facility] [id number] [place] [address] 67014- 3054 Jul, [facility] [address] 32682 -6909 Jul, Pain in right knee M25.561 and Other chronic pain G89.29 [facility] [id number] [place] [address] 70261- 8614 07 Sep, 2016 Dermatofibroma D23.9 [facility] [address], [place] [address]- 2673 Aug, Dermatofibroma D23.9 [facility] [id number] [place] [address] 61748- 5201 Oct, Nevoid hyperpigmentation L81.9 ; Seborrheic keratoses L82.1 and Dermatofibroma D23.9 [facility] [id number] [place] [address] 48796- 4640 16 Sep, 2015 Dermatofibroma D23.9 and Skin tag L91.8 [facility] [id number] [place] [address] 16699- 9173 14 Aug, 2015 Facial skin lesion L98.9 [facility] [id number] [place] [address] 70114- 9652 Nov, [facility] [id number] [place] [address] 21181- 8368 Nov, [facility] [address] [place] [address] 43909- 7389 Sep, [facility] [id number] [place] [address] 88536- 1812 Sep, [facility] [address], [place] [address]- 0364 Oct, [facility] [id number] [place] [address] 36779- 7382 Oct, [facility] [address], [place] [address]- 7134 Oct, [facility] [id number] [place] [address] 90381- 3971 Oct, [facility] [address], [place] [address]- 0748 Sep, [facility] [id number] [place] [address] 27740- 2546 Sep, [facility] [address] [facility] [id number] [address]- 3066 Jul, [facility] [address] [place] [id number] [address]- 0156 Jun, [facility] [address] [facility] [address] [id number] [address]- 3631 Jun, [facility] [address] [facility] [address] [id number] [address]- 1300 Jun, IMMUNIZATIONS No Known Immunizations SOCIAL HISTORY Never Assessed REASON FOR VISIT Requests return call PLAN OF CARE VITAL SIGNS MEDICATIONS Unknown Medications RESULTS No Results PROCEDURES No Known procedures INSTRUCTIONS MEDICATIONS ADMINISTERED No Known Medications MEDICAL (GENERAL) HISTORY Type Description Date Medical History breast cancer; completed treatment Surgical History hysterectomy Surgical History left breast mastectomy Hospitalization History surgery Hospitalization History
--- OUTSIDE RECORDS SUMMARY | 2018-04-28 17:31 | XMS REPORT ---
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 and Chondromalacia, right knee M94.261 [facility] [id number] [place] [address] 32776- 2972 Jul, [facility] [address] [address] -5950 Jul, [facility] [id number] [place] [address] 31923- 2263 Jul, Pain in right knee M25.561 [facility] [id number] [place] [address] 15642 -3040 Jul, Pain in right knee M25.561 [facility] [id number] [place] [address] 41221- 1688 Jul, [facility] [address] 08085 -7236 Jul, Pain in right knee M25.561 and Other chronic pain G89.29 [facility] [address] [address]76- 0602 07 Sep, 2016 Dermatofibroma D23.9 [facility] [address]65[address], [place] [address]- 3715 Aug, Dermatofibroma D23.9 [facility] [id number] [place] [address] 45295- 2192 Oct, Nevoid hyperpigmentation L81.9 ; Seborrheic keratoses L82.1 and Dermatofibroma D23.9 [facility] [id number] [place] [address] 30760- 5950 16 Sep, 2015 Dermatofibroma D23.9 and Skin tag L91.8 [facility] [id number] [place] [address] 18121- 8307 14 Aug, 2015 Facial skin lesion L98.9 [facility] [id number] [place] [address] 95746- 2246 Nov, [facility] [id number] [place] [address] 25573- 1543 Nov, [facility] [address] [place] [address] 13609- 4934 Sep, [facility] [id number] [place] [address] 72344- 7217 Sep, [facility] [address], [place] [address]- 9347 Oct, [facility] [id number] [place] [address] 09202- 1621 Oct, [facility] [address], [place] [address]- 5483 Oct, [facility] [id number] [place] [address] 05547- 0184 Oct, [facility] [address], [place] [address]- 8802 Sep, [facility] [id number] [place] [address] 92808- 2546 Sep, [facility] [address] [facility] [id number], [place] [address]- 2546 Jul, [facility] [address] [id number], [place] [address] 2546 Jun, [facility] [address] [facility] [id number], [place] [address]- 9290 Jun, [facility] [address] [facility] [id number], [place] [address]- 9606 Jun, IMMUNIZATIONS No Known Immunizations SOCIAL HISTORY Never Assessed REASON FOR VISIT Referral questions PLAN OF CARE VITAL SIGNS MEDICATIONS Unknown Medications RESULTS No Results PROCEDURES No Known procedures INSTRUCTIONS MEDICATIONS ADMINISTERED No Known Medications MEDICAL (GENERAL) HISTORY Type Description Date Medical History breast cancer; completed treatment Surgical History hysterectomy Surgical History left breast mastectomy Hospitalization History surgery Hospitalization History
--- OUTSIDE RECORDS SUMMARY | 2018-04-28 17:31 | XMS REPORT ---
Author Author YENIFER DAVIS [facility] Address [address] [place] [address] Care Team Providers Care Handkerchief Cutter Name Role Phone YENIFER DAVIS Unavailable PROBLEMS Type Condition ICD9-CM Code FNU68-YT Code Onset Dates Condition Status SNOMED Code Problem Pain in joint, pelvic region and thigh 719.45 Active [id number] ALLERGIES No Known Allergies SOCIAL HISTORY Never Assessed PLAN OF CARE VITAL SIGNS Height 69 in 2016-10-02 Weight 136.6 lbs 2016-10-02 Temperature 98.2 degrees Fahrenheit 2016-10-02 Heart Rate 80 bpm 2016-10-02 Respiratory Rate 18 2016-10-02 BMI 20.17 kg/m2 2016-10-02 Blood pressure systolic 94 mmHg 2016-10-02 Blood pressure diastolic 68 mmHg 2016-10-02 MEDICATIONS Medication Instructions Dosage Frequency Start Date End Date Duration Status Ibuprofen 600 mg take 1 tablet by Oral route 3 times per day with food PRN for pain Sep, Active RESULTS No Results PROCEDURES No Known procedures IMMUNIZATIONS No Known Immunizations MEDICAL (GENERAL) HISTORY Type Description Date Medical History breast cancer; completed treatment Surgical History hysterectomy Surgical History left breast mastectomy Hospitalization History surgery Hospitalization History
--- OUTSIDE RECORDS SUMMARY | 2018-04-28 17:32 | XMS REPORT | Continuity of Care Document ---
Author Author [facility] Organization [facility] Address Unknown Phone Unavailable Allergies Active Description Code Type Severity Reaction Onset Reported/Identified Relationship to Patient Clinical Status Yes No Known Drug Allergies [id number] Drug Allergy Unknown N/A 06/21/2011 Yes sulfamethoxazole [id number] Drug Allergy Unknown anaphylaxis 05/04/2017 Yes trimethoprim [id number] Drug Allergy Unknown anaphylaxis 05/04/2017 Medications There is no data. Problems Date Dx Coded Attending Type Code Diagnosis Diagnosed By 06/21/2011 Ot 610.0 SOLITARY CYST OF BREAST 06/21/2011 Ot 611.72 LUMP OR MASS IN BREAST 07/05/2011 Ot 217 BENIGN NEOPLASM BREAST 07/05/2011 Ot 610.1 DIFFUS CYSTIC MASTOPATHY 07/05/2011 Ot V10.3 HX OF BREAST MALIGNANCY 09/10/2013 NAHUM LU, ISSAC Gamble Ot 789.09 ABDOMINAL PAIN, OTHER SPECIFIED SITE 09/20/2013 BRIGETTE DHALIWAL EMERGENCY RESPONSE OFFICER Ot 599.0 URIN TRACT INFECTION NOS 09/20/2013 BRIGETTE DHALIWAL APRN Ot 724.2 LUMBAGO 10/24/2013 MELO MACIAS DO Ot 599.0 URIN TRACT INFECTION NOS 10/24/2013 MELO MACIAS DO Ot 724.2 LUMBAGO 10/24/2013 MELO MACIAS DO Ot 729.1 MYALGIA AND MYOSITIS NOS 04/17/2016 Ot 610.0 SOLITARY CYST OF BREAST 04/17/2016 Ot V10.3 HX OF BREAST MALIGNANCY 04/17/2016 Ot V10.3 HX OF BREAST MALIGNANCY 04/17/2016 Ot V72.63 PRE- PROCEDURAL LABORATORY EXAMINATION 04/17/2016 Ot V74.8 SCREEN- BACTERIAL DIS NEC 04/17/2016 Ot V67.09 SURGERY FOLLOW-UP, OTHER SURGERY 04/17/2016 Ot 793.82 INCONCLUSIVE MAMMOGRAM 04/17/2016 Ot V10.3 HX OF BREAST MALIGNANCY 04/17/2016 Ot V76.11 SCRN MAMMO- HIGH RISK PT, MALIGNANT NEOPL 04/17/2016 Ot 611.72 LUMP OR MASS IN BREAST 04/17/2016 Ot 611.72 LUMP OR MASS IN BREAST 04/17/2016 SAMANTHA COPPOLA [facility] Ot 610.0 SOLITARY CYST OF BREAST 04/17/2016 SAMANTHA COPPOLA [facility] Ot V67.09 SURGERY FOLLOW-UP, OTHER SURGERY 04/17/2016 SAMANTHA COPPOLA GYROSCOPE TECHNICIAN Ot 610.0 SOLITARY CYST OF BREAST 04/17/2016 SAMANTHA COPPOLA GYROSCOPE TECHNICIAN Ot 610.0 SOLITARY CYST OF BREAST 04/17/2016 SAMANTHA COPPOLA GYROSCOPE TECHNICIAN Ot 611.71 MASTODYNIA 04/17/2016 SAMANTHA COPPOLA [facility] Ot V10.3 HX OF BREAST MALIGNANCY 04/17/2016 SAMANTHA COPPOLA GYROSCOPE TECHNICIAN Ot Z12.31 ENCNTR SCREEN MAMMOGRAM FOR MALIGNANT NE 04/18/2016 SAMANTHA COPPOLA GYROSCOPE TECHNICIAN Ot Z12.31 ENCNTR SCREEN MAMMOGRAM FOR MALIGNANT NE 04/25/2016 Ot 610.0 SOLITARY CYST OF BREAST 04/25/2016 Ot V10.3 HX OF BREAST MALIGNANCY 04/25/2016 Ot V10.3 HX OF BREAST MALIGNANCY 04/25/2016 Ot V72.63 PRE- PROCEDURAL LABORATORY EXAMINATION 04/25/2016 Ot V74.8 SCREEN- BACTERIAL DIS NEC 04/25/2016 Ot V67.09 SURGERY FOLLOW-UP, OTHER SURGERY 04/25/2016 Ot 793.82 INCONCLUSIVE MAMMOGRAM 04/25/2016 Ot V10.3 HX OF BREAST MALIGNANCY 04/25/2016 Ot V76.11 SCRN MAMMO- HIGH RISK PT, MALIGNANT NEOPL 04/25/2016 Ot 611.72 LUMP OR MASS IN BREAST 04/25/2016 Ot 611.72 LUMP OR MASS IN BREAST 04/25/2016 SAMNATHA COPPOLA GYROSCOPE TECHNICIAN Ot 610.0 SOLITARY CYST OF BREAST 04/25/2016 SAMANTHA COPPOLA GYROSCOPE TECHNICIAN Ot V67.09 SURGERY FOLLOW-UP, OTHER SURGERY 04/25/2016 SAMANTHA COPPOLA GYROSCOPE TECHNICIAN Ot 610.0 SOLITARY CYST OF BREAST 04/25/2016 SAMANTHA COPPOLA GYROSCOPE TECHNICIAN Ot 610.0 SOLITARY CYST OF BREAST 04/25/2016 SAMANTHA COPPOLA [facility] Ot 611.71 MASTODYNIA 04/25/2016 SAMANTHA COPPOLA GYROSCOPE TECHNICIAN Ot V10.3 HX OF BREAST MALIGNANCY 04/25/2016 SAMANTHA COPPOLA [facility] Ot Z12.31 ENCNTR SCREEN MAMMOGRAM FOR MALIGNANT NE 05/02/2016 Ot 610.0 SOLITARY CYST OF BREAST 05/02/2016 Ot V10.3 HX OF BREAST MALIGNANCY 05/02/2016 Ot V10.3 HX OF BREAST MALIGNANCY 05/02/2016 Ot V72.63 PRE- PROCEDURAL LABORATORY EXAMINATION 05/02/2016 Ot V74.8 SCREEN- BACTERIAL DIS NEC 05/02/2016 Ot V67.09 SURGERY FOLLOW-UP, OTHER SURGERY 05/02/2016 Ot 793.82 INCONCLUSIVE MAMMOGRAM 05/02/2016 Ot V10.3 HX OF BREAST MALIGNANCY 05/02/2016 Ot V76.11 SCRN MAMMO- HIGH RISK PT, MALIGNANT NEOPL 05/02/2016 Ot 611.72 LUMP OR MASS IN BREAST 05/02/2016 Ot 611.72 LUMP OR MASS IN BREAST 05/02/2016 SAMANTHA COPPOLA [facility] Ot 610.0 SOLITARY CYST OF BREAST 05/02/2016 SAMANTHA COPPOLA [facility] Ot V67.09 SURGERY FOLLOW-UP, OTHER SURGERY 05/02/2016 SAMANTHA COPPOLA [facility] Ot 610.0 SOLITARY CYST OF BREAST 05/02/2016 SAMANTHA COPPOLA [facility] Ot 610.0 SOLITARY CYST OF BREAST 05/02/2016 SAMANTHA COPPOAL [facility] Ot 611.71 MASTODYNIA 05/02/2016 SAMANTHA COPPOLA [facility] Ot V10.3 HX OF BREAST MALIGNANCY 05/02/2016 SAMANTHA COPPOLAP Ot Z12.31 ENCNTR SCREEN MAMMOGRAM FOR MALIGNANT NE 05/04/2016 SAMANTHA COPPOLA [facility] Ot R92.8 OTH ABN AND INCONCLUSIVE FINDINGS ON DX 07/07/2016 MANNY FIELD MD Ot F17.210 NICOTINE DEPENDENCE, CIGARETTES, UNCOMPL 07/07/2016 MANNY FIELD MD Ot M25.561 PAIN IN RIGHT KNEE 07/07/2016 MANNY FIELD MD Ot M70.51 OTHER BURSITIS OF KNEE, RIGHT KNEE 07/07/2016 Ot 610.0 SOLITARY CYST OF BREAST 07/07/2016 Ot V10.3 HX OF BREAST MALIGNANCY 07/07/2016 Ot V10.3 HX OF BREAST MALIGNANCY 07/07/2016 Ot V72.63 PRE- PROCEDURAL LABORATORY EXAMINATION 07/07/2016 Ot V74.8 SCREEN- BACTERIAL DIS NEC 07/07/2016 Ot V67.09 SURGERY FOLLOW-UP, OTHER SURGERY 07/07/2016 Ot 793.82 INCONCLUSIVE MAMMOGRAM 07/07/2016 Ot V10.3 HX OF BREAST MALIGNANCY 07/07/2016 Ot V76.11 SCRN MAMMO- HIGH RISK PT, MALIGNANT NEOPL 07/07/2016 Ot 611.72 LUMP OR MASS IN BREAST 07/07/2016 Ot 611.72 LUMP OR MASS IN BREAST 07/07/2016 SAMANTHA COPPOLA [facility] Ot 610.0 SOLITARY CYST OF BREAST 07/07/2016 SAMANTHA COPPOLA GYROSCOPE TECHNICIAN Ot V67.09 SURGERY FOLLOW-UP, OTHER SURGERY 07/07/2016 SAMANTHA COPPOLA GYROSCOPE TECHNICIAN Ot 610.0 SOLITARY CYST OF BREAST 07/07/2016 SAMANTHA COPPOLA GYROSCOPE TECHNICIAN Ot 610.0 SOLITARY CYST OF BREAST 07/07/2016 SAMANTHA COPPOLA GYROSCOPE TECHNICIAN Ot 611.71 MASTODYNIA 07/07/2016 SAMANTHA COPPOLA GYROSCOPE TECHNICIAN Ot V10.3 HX OF BREAST MALIGNANCY 07/07/2016 SAMANTHA COPPOLA GYROSCOPE TECHNICIAN Ot Z12.31 ENCNTR SCREEN MAMMOGRAM FOR MALIGNANT NE 07/07/2016 SAMANTHA COPPOLA GYROSCOPE TECHNICIAN Ot R92.8 OTH ABN AND INCONCLUSIVE FINDINGS ON DX 07/13/2016 MANNY FIELD MD Ot F17.210 NICOTINE DEPENDENCE, CIGARETTES, UNCOMPL 07/13/2016 MANNY FIELD MD Ot M25.561 PAIN IN RIGHT KNEE 07/13/2016 MANNY FIELD MD Ot M70.51 OTHER BURSITIS OF KNEE, RIGHT KNEE 12/31/2016 YENIFER LAMBERT DO Ot K59.00 CONSTIPATION, UNSPECIFIED 12/31/2016 YENIFER LAMBERT DO Ot N39.0 URINARY TRACT INFECTION, SITE NOT SPECIF 12/31/2016 YENIFER LAMBERT DO Ot R10.31 RIGHT LOWER QUADRANT PAIN 01/02/2017 YENIFER LAMBERT DO Ot K59.00 CONSTIPATION, UNSPECIFIED 01/02/2017 YENIFER LAMBERT DO Ot N39.0 URINARY TRACT INFECTION, SITE NOT SPECIF 01/02/2017 YENIFER LAMBERT DO Ot R10.31 RIGHT LOWER QUADRANT PAIN 01/05/2017 YENIFER LAMBERT DO Ot K59.00 CONSTIPATION, UNSPECIFIED 01/05/2017 YENIFER LAMBERT DO Ot N39.0 URINARY TRACT INFECTION, SITE NOT SPECIF 01/05/2017 YENIFER LAMBERT DO Ot R10.31 RIGHT LOWER QUADRANT PAIN 05/04/2017 MELO MACIAS DO K Ot F17.290 NICOTINE DEPENDENCE, OTHER TOBACCO PRODU 05/04/2017 GILBERTO MELO MCDONALD K Ot N39.0 URINARY TRACT INFECTION, SITE NOT SPECIF 05/04/2017 GILBERTO CHANDLER MCDONALDA K Ot R21 RASH AND OTHER NONSPECIFIC SKIN ERUPTION 05/04/2017 GILBERTO DOCHANDLERA K Ot T36.8X1A POISONING BY OTH SYSTEMIC ANTIBIOTICS, A 05/04/2017 GILBERTO CHANDLER MCDONALDA K Ot Z85.3 PERSONAL HISTORY OF MALIGNANT NEOPLASM O 05/04/2017 GILBERTO DO MELO K Ot Z90.710 ACQUIRED ABSENCE OF BOTH CERVIX AND UTER 05/04/2017 GILBERTO , MELO K Ot Z92.3 PERSONAL HISTORY OF IRRADIATION 05/06/2017 GILBERTO MELO MCDONALD K Ot F17.290 NICOTINE DEPENDENCE, OTHER TOBACCO PRODU 05/06/2017 GILBERTO CHANDLER MCDONALDA K Ot N39.0 URINARY TRACT INFECTION, SITE NOT SPECIF 05/06/2017 GILBERTO CHANDLER MCDONALDA K Ot R21 RASH AND OTHER NONSPECIFIC SKIN ERUPTION 05/06/2017 GILBERTO CHANDLER MCDONALDA K Ot T36.8X1A POISONING BY OTH SYSTEMIC ANTIBIOTICS, A 05/06/2017 GILBERTO CHANDLER MCDONALDA K Ot Z85.3 PERSONAL HISTORY OF MALIGNANT NEOPLASM O 05/06/2017 GILBERTO CHANDLER MCDONALDA K Ot Z90.710 ACQUIRED ABSENCE OF BOTH CERVIX AND UTER 05/06/2017 GILBERTO CHANDLER MCDONALDA K Ot Z92.3 PERSONAL HISTORY OF IRRADIATION 06/06/2017 SAMANTHA COPPOLAP Ot Z12.31 ENCNTR SCREEN MAMMOGRAM FOR MALIGNANT NE 06/17/2017 SAMANTHA COPPOLA Ot Z12.31 ENCNTR SCREEN MAMMOGRAM FOR MALIGNANT NE 06/18/2017 SAMANTHA COPPOLA Lexie GYROSCOPE TECHNICIAN Ot N60.01 SOLITARY CYST OF RIGHT BREAST Procedures There is no data. Results Test Result Range Complete urinalysis with reflex to culture - 12/31/16 16:45 Urine color determination RED NRG Urine clarity determination CLEAR NRG Urine pH measurement by test strip 6 5-9 Specific gravity of urine by test strip 1.020 1.016- 1.022 Urine protein assay by test strip, semi-quantitative NEGATIVE NEGATIVE Urine glucose detection by automated test strip NEGATIVE NEGATIVE Erythrocytes detection in urine sediment by light microscopy NEGATIVE NEGATIVE Urine ketones detection by automated test strip NEGATIVE NEGATIVE Urine nitrite detection by test strip POSITIVE NEGATIVE Urine total bilirubin detection by test strip 2+ NEGATIVE Urine urobilinogen measurement by automated test strip (mass/volume) 4 mg/dL NORMAL Urine leukocyte esterase detection by dipstick NEGATIVE NEGATIVE Automated urine sediment erythrocyte count by microscopy (number/high power field) NONE NRG Automated urine sediment leukocyte count by microscopy (number/high power field ) RARE NRG Bacteria detection in urine sediment by light microscopy TRACE NRG Squamous epithelial cells detection in urine sediment by light microscopy 2-5 NRG Crystals detection in urine sediment by light microscopy NONE NRG Casts detection in urine sediment by light microscopy NONE NRG Mucus detection in urine sediment by light microscopy NEGATIVE NRG Complete urinalysis with reflex to culture YES NRG Bacterial urine culture - 12/31/16 16:45 Bacterial urine culture [id number] NRG COLONY COUNT 10,000/ML - 100,000/ML NRG Complete urinalysis with reflex to culture - 05/04/17 12:40 Urine color determination YELLOW NRG Urine clarity determination SLIGHTLY CLOUDY NRG Urine pH measurement by test strip 8 5-9 Specific gravity of urine by test strip 1.015 1.016- 1.022 Urine protein assay by test strip, semi-quantitative NEGATIVE NEGATIVE Urine glucose detection by automated test strip NEGATIVE NEGATIVE Erythrocytes detection in urine sediment by light microscopy NEGATIVE NEGATIVE Urine ketones detection by automated test strip NEGATIVE NEGATIVE Urine nitrite detection by test strip NEGATIVE NEGATIVE Urine total bilirubin detection by test strip NEGATIVE NEGATIVE Urine urobilinogen measurement by automated test strip (mass/volume) NORMAL NORMAL Urine leukocyte esterase detection by dipstick 2+ NEGATIVE Automated urine sediment erythrocyte count by microscopy (number/high power field) NONE NRG Automated urine sediment leukocyte count by microscopy (number/high power field ) RARE NRG Bacteria detection in urine sediment by light microscopy TRACE NRG Crystals detection in urine sediment by light microscopy NONE NRG Casts detection in urine sediment by light microscopy NONE NRG Mucus detection in urine sediment by light microscopy NEGATIVE NRG Complete urinalysis with reflex to culture NO NRG Amorphous sediment detection in urine sediment by light microscopy RARE MASOOD PHOSPHATE NRG Bacterial urine culture - 05/04/17 12:40 Bacterial urine culture [id number] NRG COLONY COUNT >100,000/ML NRG FTX;REPORTABLE SENSITIVITY REPORTED 05/05 17:00 NRG URINE CULTURE RESULTS PLUS NRG Bacterial susceptibility panel - 05/04/17 12:40 Gentamicin susceptibility test by minimum inhibitory concentration < = NRG Trimethoprim/sulfamethoxazole susceptibility test by minimum inhibitoryconcentration <= NRG Ampicillin susceptibility test by minimum inhibitory concentration > = NRG Tobramycin susceptibility test by minimum inhibitory concentration < = NRG Cefazolin susceptibility test by minimum inhibitory concentration < = NRG Ceftriaxone susceptibility test by minimum inhibitory concentration <= NRG Ampicillin/sulbactam susceptibility test by minimum inhibitory concentration 16 NRG Piperacillin/tazobactam susceptibility test by minimum inhibitory concentration <= NRG Ciprofloxacin susceptibility test by minimum inhibitory concentration <= NRG Meropenem susceptibility test by minimum inhibitory concentration < = NRG Nitrofurantoin susceptibility test by minimum inhibitory concentration <= NRG Aztreonam susceptibility test by minimum inhibitory concentration < = NRG Extended spectrum beta lactamase (ESBL) producing bacteria susceptibility test by minimum inhibitory concentration - NRG Encounters ACCT No. Visit Date/Time Discharge Status Pt. Type Provider Facility Loc./Unit Complaint [id number] 06/17/2017 14:00:00 06/17/2017 23:59:59 CLS Outpatient SAMANTHA COPPOLA [facility] RAD ABNORMAL MAMMO [id number] 06/05/2017 15:00:00 06/05/2017 23:59:59 CLS Outpatient SAMANTHA COPPOLA [facility] RAD SCREENING [id number] 05/04/2017 11:14:00 05/04/2017 13:20:00 DIS Emergency MELO MACIAS DO [facility] ER ALLERGIC RXN [id number] 12/31/2016 16:24:00 12/31/2016 18:38:00 DIS Emergency YENIFER LAMBERT DO [facility] ER BACK PAIN [id number] 07/07/2016 09:31:00 07/07/2016 10:55:00 DIS Emergency MANNY FIELD MD [facility] ER R KNEE SWELLING [id number] 05/16/2016 14:07:00 05/16/2016 23:59:59 CLS Outpatient VERA GONZALEZ GYROSCOPE TECHNICIAN [facility] QUICK [id number] 05/02/2016 14:13:00 05/02/2016 23:59:59 CLS Outpatient SAMATNHA COPPOLA GYROSCOPE TECHNICIAN [facility] RAD ABN SCREENING, DENSITY [id number] 04/17/2016 13:21:00 04/17/2016 23:59:59 CLS Outpatient SAMANTHA COPPOLA GYROSCOPE TECHNICIAN [facility] RAD SCREENING [id number] 02/23/2015 08:05:00 02/23/2015 23:59:59 CLS Outpatient SAMANTHA COPPOLAP [facility] RAD BREAST PAIN, HX OF BREAST CA [id number] 02/23/2014 10:16:00 02/23/2014 23:59:59 CLS Outpatient SAMANTHA COPPOLAP [facility] RAD 6 MONTH FOLLOW UP [id number] 10/23/2013 21:54:00 10/24/2013 00:00:00 DIS Emergency MELO MACIAS DO [facility] ER LOWER BACK PAIN [id number] 09/20/2013 15:19:00 09/20/2013 18:26:00 DIS Emergency BRIGETTE DHALIWAL APRN [facility] ER BACK PAIN [id number] 09/10/2013 13:57:00 09/10/2013 17:42:00 DIS Emergency ISSAC SIDHU MD [facility] ER BACK PAIN [id number] 08/31/2013 13:34:00 08/31/2013 23:59:59 CLS Outpatient SAMANTHA COPPOLAP [facility] RAD RT BREAST CYST [id number] 05/01/2013 08:45:00 05/01/2013 23:59:59 CLS Outpatient [id number] 01/07/2013 13:57:00 01/07/2013 23:59:59 CLS Outpatient SAMANTHA COPPOLA [facility] RAD SIX MONTH FOLLOW-UP [id number] 01/02/2013 17:17:00 01/02/2013 23:59:59 CLS Outpatient [id number] 04/17/2016 13:19:00 Document Registration [id number] 07/04/2012 09:29:00 Document Registration [id number] 06/26/2012 13:48:00 Document Registration [id number] 06/06/2012 14:05:00 Document Registration [id number] 01/14/2012 14:39:00 Document Registration [id number] 07/05/2011 05:48:00 Document Registration [id number] 07/02/2011 08:17:00 Document Registration [id number] 06/27/2011 11:15:00 Document Registration [id number] 06/21/2011 14:58:00 Document Registration
[2018-04-28 17:57] LABS: BILIRUBIN,URINE NEGATIVE (NEGATIVE); CLARITY,URINE CLEAR; COLOR,URINE YELLOW; GLUCOSE, URINE (UA) NEGATIVE (NEGATIVE); KETONES,URINE NEGATIVE (NEGATIVE); LEUKOCYTE ESTERASE ,URINE NEGATIVE (NEGATIVE); NITRITE,URINE NEGATIVE (NEGATIVE); PH,URINE 5 (5-9); PROTEIN,URINE NEGATIVE (NEGATIVE); UROBILINOGEN,URINE NORMAL (NORMAL)
--- NOTE | 2018-04-28 18:03 | ED GU-Female ---
General Chief Complaint: -Female Stated Complaint: POSS KIDNEY INFECTION Nursing Triage Note: PT PRESENTS TO ER WITH COMPLAINT OF POSSIBLE UTI/KIDNEY INFECTIONS. STATES SYMPTOMS STARTED SATURDAY. Nursing Sepsis Screen: No Definite Risk Source: patient Exam Limitations: no limitations (ANAI MENDOZA) History of Present Illness Date Seen by Provider: Apr 28, 2018 Time Seen by Provider: 17:55 Initial Comments Patient presents to ER by private conveyance with chief complaint she is having some urinary frequency dysuria and uncomfortable feeling down there. She says she has no discharge. No dyspareunia. She's postmenopausal. She took some AZO around 3 but does not help much. She's not uncouple left wanted Tylenol or Motrin. She's had urinary tract infections before but never had a kidney stone. She says the pain started or swelling of her right flank and back. This started in her genital area. (ANAI MENDOZA) Allergies and Home Medications Allergies Coded Allergies: sulfamethoxazole (Verified Allergy, Unknown, anaphylaxis, 05/04/17) trimethoprim (Verified Allergy, Unknown, anaphylaxis, 05/04/17) Home Medications Cefdinir 300 Mg Capsule, 300 MG PO BID Prescribed by: YENIFER LAMBERT on 12/31/16 1730 Clindamycin HCl 100 Mg Supp, 100 MG VG HS Prescribed by: MELO ARANDA on 04/28/182017 Fluconazole 200 Mg Tablet, 200 MG PO DAILY Prescribed by: MELO ARANDA on 04/28/182017 Hydrocodone/Acetaminophen 1 Each Tablet, 1 EACH PO Q6H Prescribed by: YENIFER LAMBERT on 12/31/16 1730 Ibuprofen 600 Mg Tablet, 600 MG PO 3 times a day PRN for PAIN Prescribed by: MANNY FIELD on 07/07/16 1042 Naproxen 500 Mg Tablet, 500 MG PO BID Prescribed by: MELO ARANDA on 04/28/182017 Nitrofurantoin Monohyd/M-Cryst 100 Mg Capsule, 100 MG PO BID Prescribed by: MELO ARANDA on 05/04/17 1306 Prednisone 10 Mg Tab, 40 MG PO DAILY Prescribed by: MELO ARANDA on 05/04/17 1239 Patient Home Medication List Home Medication List Reviewed: Yes (ANAI MENDOZA) Review of Systems Review of Systems Constitutional: No chills, No diaphoresis EENTM: No hearing loss, No ear pain Respiratory: No cough, No dyspnea on exertion Genitourinary: burning; denies discharge; dysuria, flank pain (ANAI MENDOZA) Past Irwhqew-Jnohjb-Sdxmxl Hx Patient Social History Alcohol Use: Denies Use Recreational Drug Use: No Type Used: Electronic/Vapor Recent Foreign Travel: No Contact w/Someone Who Travel: No Recent Infectious Disease Expo: No Recent Hopitalizations: No (ANAI MENDOZA) Past Medical History Surgeries: Yes (2003 BREAST LUMPECTOMY; HYST/BSO) Breast, Hysterectomy, Oophorectomy Respiratory: No Cardiac: No Neurological: No 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 Sexually Transmitted Disease: No HIV/AIDS: No Genitourinary: Yes Bladder Infection Gastrointestinal: No Musculoskeletal: No Endocrine: No Loss of Vision: Denies Hearing Impairment: Denies Cancer: Yes (BREAST CANCER 2003--S/P LUMPECTOMY + RADIATION.) Breast What Type of Treatment Did You: Radiation, Surgical Intervention Psychosocial: No Integumentary: No Blood Disorders: No Adverse Reaction/Blood Tranf: No (ANAI MENDOZA) Family Medical History No Pertinent Family Hx (ANAI MENDOZA) Physical Exam Vital Signs Vital Signs - First Documented 04/28/18 17:50 Temp 98.0 Pulse 63 Resp 20 B/P (MAP) 110/69 (83) Pulse Ox 100 O2 Delivery Room Air (MELO ARANDA DO) Vital Signs Capillary Refill : Less Than 3 Seconds (AANI MENDOZA) Height, Weight, BMI Height: 5'9.00" Weight: 140lbs. oz. 63.016353ti; BMI Method:Stated General Appearance: WD/WN, no apparent distress HEENT: PERRL/EOMI, pharynx normal Respiratory: no respiratory distress, no accessory muscle use Gastrointestinal: non tender, soft Back: normal inspection, no CVA tenderness Neurologic/Psychiatric: alert, oriented x 3 Skin: normal color, warm/dry (ANAI MENDOZA) Pelvic: normal external exam, normal adnexa, discharge (SCANT AMOUNT OF DISCHARGE, VAGINAL CANAL AND CUFF MILDLY INFLAMED. ) (MELO ARANDA DO) Progress/Results/Core Measures Suspected Sepsis Recent Fever Within 48 Hours: No Infection Criteria Present: None New/Unexplained Altered Menta: No Sepsis Screen: No Definite Risk SIRS Temperature:98.0 Pulse: 63 Respiratory Rate: 20 Blood Pressure 110 /69 Mean: 83 (ANAI MENDOZA) SIRS (MANOJMELO Snider DO) Results/Orders Lab Results Laboratory Tests Test 04/28/18 17:50 04/28/18 19:05 04/28/18 19:55 Range/Units Urine Color YELLOW Urine Clarity CLEAR Urine pH 5 5-9 Urine Specific [place] 1.025 H 1.016-1.022 Urine Protein NEGATIVE NEGATIVE Urine Glucose (UA) NEGATIVE NEGATIVE Urine Ketones NEGATIVE NEGATIVE Urine Nitrite NEGATIVE NEGATIVE Urine Bilirubin NEGATIVE NEGATIVE Urine Urobilinogen NORMAL NORMAL MG/DL Urine Leukocyte Esterase NEGATIVE NEGATIVE Urine RBC (Auto) 1+ H NEGATIVE Urine RBC NONE /HPF Urine WBC RARE /HPF Urine Squamous Epithelial Cells 2-5 /HPF Urine Renal Epithelial Cells NONE /HPF Urine Crystals NONE /LPF Urine Bacteria FEW H /HPF Urine Casts NONE /LPF Urine Mucus SMALL H /LPF Urine Culture Indicated NO White Blood Count 8.3 4.3-11.0 10^3/uL Red Blood Count 4.53 4.35-5.85 10^6/uL Hemoglobin 13.6 11.5-16.0 G/DL Hematocrit 39 35-52 % Mean Corpuscular Volume 87 80-99 FL Mean Corpuscular Hemoglobin 30 25-34 PG Mean Corpuscular Hemoglobin Concent 35 32-36 G/DL Red Cell Distribution Width 13.2 10.0-14.5 % Platelet Count 248 130-400 10^3/uL Mean Platelet Volume 10.1 7.4-10.4 FL Neutrophils (%) (Auto) 64 42-75 % Lymphocytes (%) (Auto) 25 12-44 % Monocytes (%) (Auto) 9 0-12 % Eosinophils (%) (Auto) 1 0-10 % Basophils (%) (Auto) 0 0-10 % Neutrophils # (Auto) 5.3 1.8-7.8 X 10^3 Lymphocytes # (Auto) 2.1 1.0-4.0 X 10^3 Monocytes # (Auto) 0.8 0.0-1.0 X 10^3 Eosinophils # (Auto) 0.1 0.0-0.3 10^3/uL Basophils # (Auto) 0.0 0.0-0.1 10^3/uL Sodium Level 140 135-145 MMOL/L Potassium Level 4.1 3.6-5.0 MMOL/L Chloride Level 108 H 98-107 MMOL/L Carbon Dioxide Level 22 21-32 MMOL/L Anion Gap 10 5-14 MMOL/L Blood Urea Nitrogen 17 7-18 MG/DL Creatinine 0.72 0.60-1.30 MG/DL Estimat Glomerular Filtration Rate > 60 BUN/Creatinine Ratio 24 Glucose Level 94 70-105 MG/DL Calcium Level 9.7 8.5-10.1 MG/DL Corrected Calcium 9.3 8.5-10.1 MG/DL Total Bilirubin 0.3 0.1-1.0 MG/DL Aspartate Amino Transf (AST/SGOT) 11 5-34 U/L Alanine Aminotransferase (ALT/SGPT) 13 0-55 U/L Alkaline Phosphatase 66 40-136 U/L Total Protein 6.7 6.4-8.2 GM/DL Albumin 4.5 3.2-4.5 GM/DL (CHANDLER ARANDAA Tylor MCDONALD) My Orders Orders - MANOJMELO K DO Saline Lock/Iv-Start (04/28/18 18:45) Ct Abd/Pelvis Wo(Kidney Stone) (04/28/18 18:45) Cbc With Automated Diff (04/28/18 18:45) Comprehensive Metabolic Panel (04/28/18 18:45) Abdomen/Kub 1view (04/28/18 18:45) Neisseria Gonorrhea Swab (04/28/18 19:56) Chlam Dna Probe (04/28/18 19:56) Genital Culture (04/28/18 19:56) Wet Prep (04/28/18 19:56) Kaz Prep (04/28/18 19:56) Ceftriaxone For Iv Use (Rocephin For I (04/28/18 20:00) Azithromycin Tablet (Zithromax Tablet) (04/28/18 19:56) Ketorolac Injection (Toradol Injection) (04/28/18 19:56) (MANOJMELO K ) Vital Signs/I&O 04/28/18 20:37 Temp 98.0 Pulse 63 Resp 20 B/P (MAP) 110/69 (83) Pulse Ox 100 04/29/18 00:00 Intake Total 60 ml Balance 60 ml (MELO ARANDA DO) Vital Signs/I&O Capillary Refill : Less Than 3 Seconds (ANAI MENDOZA) Blood Pressure Mean: 83 Progress Note : Time: 18:02 Progress Note Urinalysis 1849: Urinalysis unremarkable. We are going to to move her to a private room and take a more sensitive exam. We have also asked Dr. Aranda to take over care of the patient. (ANAI MENDOZA) Progress Note : Progress Note 1849--ASSUMED CARE OF PT. WILL ORDER ADDITIONAL TESTS AND DO PELVIC EXAM. PT STATES SHE FELT LIKE SHE HAD YEAST INFECTION LAST WEEK--VAGINAL/GENITAL PAIN, BURNING AND SLIGHT DISCHARGE, ALSO HAVING SOME PAIN ON URINATION--TOOK OTC AZO WITHOUT IMPROVEMENT. NOW WITH RIGHT FLANK PAIN ALSO NO FEVER NO NAUSEA/VOMITING HAS HAD HYST, BUT OVARIES ARE INTACT (MELO ARANDA DO) Diagnostic Imaging Comments KUB--NO ACUTE PROCESS CT ABDOMEN/PELVIS--NO ACUTE PROCESS PER RADIOLOGIST REPORTS @ 1940 Reviewed: Reviewed by Me (MELO ARANDA DO) Transfer of Care Transfer of Care Time: 18:49 Care transferred to: Manoj (ANAI MENDOZA) Departure Impression Primary Impression: Dysuria Additional Impressions: Vaginitis Right flank pain Disposition: 01 HOME, SELF-CARE Condition: Stable Departure-Patient Inst. Referrals: NO,LOCAL PHYSICIAN (PCP/Family) Primary Care Physician Patient Instructions: Bacterial Vaginosis (DC), Dysuria, Adult (DC), Flank Pain (DC), Vaginal Yeast Infection (DC), Vaginitis Add. Discharge Instructions: LOTS OF CLEAR LIQUIDS FOLLOW UP WITH IN 3-4 DAYS IF NO BETTER RETURN TO ER IF WORSE All discharge instructions reviewed with patient and/or family. Voiced understanding. Scripts Naproxen (Naproxen) 500 Mg Tablet 500 MG PO BID, #20 TAB Prov: MELO ARANDA DO 04/28/18 Clindamycin HCl (Cleocin) 100 Mg Supp 100 MG VG HS, #7 SUPP Prov: MELO ARANDA DO 04/28/18 Fluconazole (Diflucan) 200 Mg Tablet 200 MG PO DAILY for FOR YEAST INFECTION, #7 TAB Prov: MELO ARANDA DO 04/28/18 ANAI MENDOZA Apr 28, 2018 18:02 MELO ARANDA DO Apr 28, 2018 18:59
[2018-04-28 18:23] LABS: BACTERIA,URINE FEW /HPF; WBC,URINE RARE /HPF
[2018-04-28 19:12] LABS: BASOPHILS % (AUTO) 0 % (0-10); EOSINOPHILS # (AUTO) 0.1 10^3/uL (0.0-0.3); EOSINOPHILS % (AUTO) 1 % (0-10); HEMATOCRIT 39 % (35-52); HEMOGLOBIN 13.6 G/DL (11.5-16.0); LYMPHOCYTES # (AUTO) 2.1 X 10^3 (1.0-4.0); LYMPHOCYTES % (AUTO) 25 % (12-44); MEAN CORPUSCULAR HEMOGLOBIN 30 PG (25-34); MEAN CORPUSCULAR HGB CONC 35 G/DL (32-36); MEAN CORPUSCULAR VOLUME 87 FL (80-99); MEAN PLATELET VOLUME 10.1 FL (7.4-10.4); MONOCYTES # (AUTO) 0.8 X 10^3 (0.0-1.0); MONOCYTES % (AUTO) 9 % (0-12); NEUTROPHILS # (AUTO) 5.3 X 10^3 (1.8-7.8); NEUTROPHILS % (AUTO) 64 % (42-75); PLATELET COUNT 248 10^3/uL (130-400); RED BLOOD COUNT 4.53 10^6/uL (4.35-5.85); RED CELL DISTRIBUTION WIDTH 13.2 % (10.0-14.5); WHITE BLOOD COUNT 8.3 10^3/uL (4.3-11.0)
[2018-04-28 19:30] LABS: ALANINE AMINOTRANSFERASE 13 U/L (0-55); ALBUMIN 4.5 GM/DL (3.2-4.5); ALKALINE PHOSPHATASE 66 U/L (40-136); BILIRUBIN,TOTAL 0.3 MG/DL (0.1-1.0); BUN/CREATININE RATIO 24; CALCIUM 9.7 MG/DL (8.5-10.1); CARBON DIOXIDE 22 MMOL/L (21-32); CHLORIDE 108 MMOL/L (98-107); CREATININE SERUM 0.72 MG/DL (0.60-1.30); GFR ESTIMATED > 60; GLUCOSE 94 MG/DL (70-105); POTASSIUM 4.1 MMOL/L (3.6-5.0); SODIUM 140 MMOL/L (135-145); TOTAL PROTEIN 6.7 GM/DL (6.4-8.2)
--- NOTE | 2018-04-28 19:35 | Diagnostic Imaging Report ---
EXAM: ABDOMEN/KUB 1VIEW INDICATION: Right flank pain. COMPARISON: None. FINDINGS: Nonspecific bowel gas pattern. Phleboliths in the pelvis. No acute osseous findings. IMPRESSION: No acute radiographic findings in the abdomen. Dictated by: Dictated on workstation # [id number]
--- NOTE | 2018-04-28 19:36 | Diagnostic Imaging Report ---
PROCEDURE: CT urinary tract, rule out kidney stone. TECHNIQUE: Multiple contiguous axial images were obtained through the abdomen and pelvis without the use of intravenous contrast. INDICATION: Right flank pain. COMPARISON: CT abdomen and pelvis without contrast 12/31/2016. FINDINGS: The lung bases are clear. The liver, gallbladder, pancreas, spleen, adrenals, kidneys, collecting systems and bladder are negative on this noncontrast exam. Hysterectomy. No evidence of appendicitis. No free intraperitoneal air or fluid. No lymphadenopathy. No evidence of bowel obstruction. No acute osseous findings. IMPRESSION: No acute CT findings in the abdomen or pelvis. Dictated by: Dictated on workstation # [id number]
[2018-04-28] MEDS ORDERED: AZITHROMYCIN 250 MG TAB (ZITHROMAX) PO STA (19:56)
[2018-04-28] MEDS ORDERED: KETOROLAC 30 MG/ML VIAL IVP STA (19:56)
[2018-04-28] MEDS ORDERED: cefTRIAXone FOR IV USE 1,000 MG in NS (IVPB) 50 ML IV ONE (20:00)
[2018-04-28] MEDS ORDERED: FLUC200T PO (20:18)
[2018-04-28] MEDS ORDERED: NAPR-915 PO (20:18)
[2018-04-28] MEDS ORDERED: NF-CLINOV VG (20:18)
[2018-04-28 20:37] VITALS: BP 110/69
== END 2018-04-28 20:37 | disposition home or self-care (01) ==
LOC: EDUNIT# 17:23 → ER 17:24
DX: N76.0 Acute vaginitis (principal); R30.0 Dysuria; R10.9 Unspecified abdominal pain; Z87.440 Personal history of urinary (tract) infections; Z88.0 Allergy status to penicillin; Z88.1 Allergy status to other antibiotic agents; Z85.3 Personal history of malignant neoplasm of breast; Z90.710 Acquired absence of both cervix and uterus; Z90.10 Acquired absence of unspecified breast and nipple
CPT/HCPCS: 36415; 74018; 74176; 80053; 81000; 85025; 87070; 87077; 87210; 87220; 87491; 87591; 96374; 96375

== ENCOUNTER → 2018-07-03 | Outpatient (CLI) | payer OTHER ==
[~2018-07-03] MED LIST changes: +FLUC200T PO; +NAPR-915 PO; +NF-CLINOV VG
--- NOTE | 2018-07-03 17:53 | Diagnostic Imaging Report ---
INDICATION: Routine screening. Comparison is made with prior mammograms from 06/05/2017 and 04/17/2016. 2-D and 3-D bilateral screening mammography was performed with computer-aided detection (CAD) system. FINDINGS: The breasts remain heterogeneously dense, limiting sensitivity of mammography. Postsurgical changes in the left breast and multiple surgical clips are again noted. There is a biopsy clip in the upper-outer right breast at posterior depth. No mass or malignant-appearing microcalcifications are seen. IMPRESSION: No mammographic features suspicious for malignancy are identified. ACR BI-RADS Category 2: Benign findings. Result letter will be mailed to the patient. Note: At least 10% of breast cancer is not imaged by mammography. Dictated by: Dictated on workstation # [id number]
== END ==
LOC: RAD 13:33
PROVIDERS: ATTEND Nurse Practitioner Family
DX: Z12.31 Encounter for screening mammogram for malignant neoplasm of breast (principal)
CPT/HCPCS: 77067

== ENCOUNTER → 2018-09-08 | Outpatient (REF) ==
--- NOTE | 2018-09-08 09:07 | Diagnostic Imaging Report ---
INDICATION: Right clavicle region injury. AP and angled views of the right clavicle are obtained. FINDINGS: No acute fracture or dislocation is identified. No abnormal lytic or sclerotic focus is seen, and there is no radiopaque foreign body. IMPRESSION: No acute abnormality. Dictated by: Dictated on workstation # [id number]
== END | disposition home or self-care (01) ==
LOC: OCC 08:41
PROVIDERS: ATTEND Nurse Practitioner Family
CPT/HCPCS: 73000

== ENCOUNTER 2018-10-07 08:01 | Emergency (ER) | payer SELFPAY ==
[~2018-10-07] VITALS: Ht 175.3 cm; Wt 63.5 kg
--- NOTE | 2018-10-07 08:58 | ED Cough/URI ---
General Chief Complaint: Cough/Cold/Flu Symptoms Stated Complaint: SINUS CONGESTION Nursing Triage Note: pt presents to er with complaint of sore throat, sinus congestion/ pressure. states it has been ongoing for one month. has done otc nasal rinses, musinex, and sudafed Sepsis Screen: No Definite Risk Source: patient Exam Limitations: no limitations History of Present Illness Date Seen by Provider: Oct 07, 2018 Time Seen by Provider: 08:45 Initial Comments Here with report of sinus fullness and congestion that going on for a month. She's tried wqfb-ljt-vdydeql therapy and nasal rinses and that does not help and has not caused resolution. She does vape. Has history of occasional sinus infections. Timing/Duration: constant, other (one month) Severity/Quality: mild Prior Episodes/Possible Cause: occasional episodes Modifying Factors: Improves With Rest Associated Symptoms: cough, fever/chills, nasal congestion, nasal drainage, sinus infection Allergies and Home Medications Allergies Coded Allergies: sulfamethoxazole (Verified Allergy, Unknown, anaphylaxis, 05/04/17) trimethoprim (Verified Allergy, Unknown, anaphylaxis, 05/04/17) Home Medications Cefdinir 300 Mg Capsule, 300 MG PO BID Prescribed by: YENIFER LAMBERT on 12/31/16 173 Clindamycin HCl 100 Mg Supp, 100 MG VG HS Prescribed by: MELO MACIAS on 04/28/182017 Fluconazole 200 Mg Tablet, 200 MG PO DAILY Prescribed by: MELO MACIAS on 04/28/182017 Hydrocodone/Acetaminophen 1 Each Tablet, 1 EACH PO Q6H Prescribed by: YENIFER LAMBERT on 12/31/16 173 Ibuprofen 600 Mg Tablet, 600 MG PO 3 times a day PRN for PAIN Prescribed by: MANNY FIELD on 07/07/16 1042 Naproxen 500 Mg Tablet, 500 MG PO BID Prescribed by: MELO MACIAS on 04/28/182017 Nitrofurantoin Monohyd/M-Cryst 100 Mg Capsule, 100 MG PO BID Prescribed by: MELO MACIAS on 05/04/17 1306 Prednisone 10 Mg Tab, 40 MG PO DAILY Prescribed by: MELO MACIAS on 05/04/17 1239 Patient Home Medication List Home Medication List Reviewed: Yes Review of Systems Review of Systems Constitutional: see HPI; No chills, No fever EENTM: see HPI Respiratory: see HPI Cardiovascular: no symptoms reported Gastrointestinal: No nausea, No vomiting Skin: no symptoms reported Past Ayphagq-Dagccr-Fbbbio Hx Past Med/Social Hx: Reviewed Nursing Past Med/Soc Hx Patient Social History Alcohol Use: Denies Use Recreational Drug Use: No Smoking Status: Current Everyday Smoker Type Used: Electronic/Vapor Recent Foreign Travel: No Contact w/Someone Who Travel: No Recent Infectious Disease Expo: No Recent Hopitalizations: No Past Medical History Surgeries: Yes (2003 BREAST LUMPECTOMY; HYST/BSO) Breast, Section, Hysterectomy, Oophorectomy Respiratory: No Cardiac: No Neurological: No 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 Sexually Transmitted Disease: No HIV/AIDS: No Genitourinary: Yes Bladder Infection Gastrointestinal: No Musculoskeletal: No Endocrine: No Loss of Vision: Denies Hearing Impairment: Denies Cancer: Yes (BREAST CANCER 2003--S/P LUMPECTOMY + RADIATION.) Breast What Type of Treatment Did You: Radiation, Surgical Intervention Psychosocial: No Integumentary: No Blood Disorders: No Adverse Reaction/Blood Tranf: No Family Medical History Reviewed Nursing Family Hx No Pertinent Family Hx Physical Exam Vital Signs - First Documented 10/07/18 08:08 Temp 96.1 Pulse 89 Resp 14 B/P (MAP) 114/80 (91) Pulse Ox 99 O2 Delivery Room Air Capillary Refill : Less Than 3 Seconds Height: 5'9.00" Weight: 140lbs. oz. 63.058074ez; BMI Method:Stated General Appearance: WD/WN, no apparent distress HEENT: TMs normal, pharyngeal erythema, other (mild/moderate bilateral nasal congestion and clear to purulent rhinorrhea especially on the left. Moderate erythema.) Neck: full range of motion, supple; No lymphadenopathy (R), No lymphadenopathy (L) Respiratory: lungs clear, normal breath sounds Cardiovascular: regular rate, rhythm, no murmur Neurologic/Psychiatric: alert, oriented x 3 Skin: normal color, warm/dry Progress/Results/Core Measures Suspected Sepsis Recent Fever Within 48 Hours: No Infection Criteria Present: None New/Unexplained Altered Menta: No Sepsis Screen: No Definite Risk SIRS Temperature:96.1 Pulse: 89 Respiratory Rate: 14 Blood Pressure 114 /80 Mean: 91 Results/Orders Vital Signs/I&O 10/07/18 08:08 Temp 96.1 Pulse 89 Resp 14 B/P (MAP) 114/80 (91) Pulse Ox 99 O2 Delivery Room Air Capillary Refill : Less Than 3 Seconds Blood Pressure Mean: 91 Progress Note : Progress Note Seen and evaluated. Discharged home with return precautions. Patient verbalize understanding instructions and agreement with plan. Departure Impression Primary Impression: Acute sinusitis Qualified Codes: J01.00 - Acute maxillary sinusitis, unspecified Disposition: HOME, SELF-CARE Condition: Stable Departure-Patient Inst. Decision time for Depature: 08:57 Referrals: NO,LOCAL PHYSICIAN (PCP/Family) Primary Care Physician Patient Instructions: Sinusitis, Adult (DC) Add. Discharge Instructions: All discharge instructions reviewed with patient and/or family. Voiced understanding. Take medications as directed. You may continue gqmy-ynu-qbacwig nasal rinse. You may take ibuprofen 600 mg every 8 hours as needed for pain. You may take Tylenol/acetaminophen 1000 mg every 8 hours as needed for pain. Drink plenty of fluids. Return for worse pain, fever, vomiting, breathing problems or other concerns as needed. Scripts Prednisone (Prednisone) 20 Mg Tab 40 MG PO DAILY, #8 TAB 0 Refills Prov: ISSAC SIDHU MD 10/07/18 Amoxicillin (Amoxicillin) 500 Mg Capsule 1000 MG PO TID, #60 CAP 0 Refills Prov: ISSAC SIDHU MD 10/07/18 ISSAC SIDHU MD Oct 07, 2018 08:58
[2018-10-07] MEDS ORDERED: PRD20T PO (08:59)
[2018-10-07] MEDS ORDERED: AMOX500C2 PO (08:59)
[2018-10-07 09:25] VITALS: BP 114/80
== END 2018-10-07 09:25 | disposition home or self-care (01) ==
LOC: EDUNIT# 08:01 → ER 08:03
DX: J01.90 Acute sinusitis, unspecified (principal); F17.290 Nicotine dependence, other tobacco product, uncomplicated; Z88.2 Allergy status to sulfonamides; Z79.52 Long term (current) use of systemic steroids; Z90.710 Acquired absence of both cervix and uterus; Z98.890 Other specified postprocedural states; Z87.448 Personal history of other diseases of urinary system; Z85.3 Personal history of malignant neoplasm of breast; Z92.21 Personal history of antineoplastic chemotherapy
CPT/HCPCS: 99282

== ENCOUNTER 2019-08-28 15:55 | Emergency (ER) | payer SELFPAY ==
[~2019-08-28] VITALS: Ht 175 cm; Wt 63.6 kg
[~2019-08-28 15:55] MED LIST changes: +AMOX500C2 PO; +PRD20T PO
[2019-08-28] MEDS ORDERED: NITROGLYCERIN 0.4 MG SL TABS BTL 25'S SL PRN (16:30)
--- NOTE | 2019-08-28 16:33 | ED Cardiac General ---
History of Present Illness General Chief Complaint: Cardiac/General Problems Stated Complaint: ABNORMAL EKG Nursing Triage Note: states she has had chest pain all day today, was just seen at [facility] and given a 1 Liter bolus of NS, was then sent here by [facility] for further evaluation Source: patient, family Exam Limitations: no limitations History of Present Illness Date Seen by Provider: Aug 28, 2019 Time Seen by Provider: 16:28 Initial Comments This 51-year-old white female presents with a history of pounding heart rate has been present for the past year. The patient presented to [facility] where she was given a liter fluid and referred to the emergency department for further evaluation. Patient states that the pounding of her heart today is accompanied by chest pressure. Patient has no previous cardiac history. She denies significant family history. Patient's a social drinker but denies recreational drugs. Patient denies associated diaphoresis, nausea, shortness of breath, fever or chills, radiation of the anterior chest pain. Patient relates that the chest pain is 7/10. Allergies and Home Medications Allergies Coded Allergies: sulfamethoxazole (Verified Allergy, Unknown, anaphylaxis, 05/04/17) trimethoprim (Verified Allergy, Unknown, anaphylaxis, 05/04/17) Home Medications Amoxicillin 500 Mg Capsule, 1,000 MG PO TID Prescribed by: ISSAC SIDHU on 10/07/18 0859 Cefdinir 300 Mg Capsule, 300 MG PO BID Prescribed by: YENIFER LAMBERT on 12/31/16 173 Clindamycin HCl 100 Mg Supp, 100 MG VG HS Prescribed by: MELO MACIAS on 04/28/182017 Fluconazole 200 Mg Tablet, 200 MG PO DAILY Prescribed by: MELO MACIAS on 04/28/182017 Hydrocodone/Acetaminophen 1 Each Tablet, 1 EACH PO Q6H Prescribed by: YENIFER LAMBERT on 12/31/16 1730 Ibuprofen 600 Mg Tablet, 600 MG PO 3 times a day PRN for PAIN Prescribed by: MANNY FIELD on 07/07/16 1042 Naproxen 500 Mg Tablet, 500 MG PO BID Prescribed by: MELO MACIAS on 04/28/182017 Nitrofurantoin Monohyd/M-Cryst 100 Mg Capsule, 100 MG PO BID Prescribed by: MELO MACIAS on 05/04/17 1306 Prednisone 10 Mg Tab, 40 MG PO DAILY Prescribed by: MELO MACIAS on 05/04/17 1239 Prednisone 20 Mg Tab, 40 MG PO DAILY Prescribed by: ISSAC SIDHU on 10/07/18 0856 Patient Home Medication List Home Medication List Reviewed: Yes Review of Systems Review of Systems Constitutional: No chills, No fever, No malaise, No weakness EENTM: No Symptoms Reported Respiratory: Denies Cough, Denies Shortness of Air Cardiovascular: See HPI, Chest Pain; Denies Palpitations; Other (heart pounding) Gastrointestinal: Denies Abdominal Pain, Denies Diarrhea, Denies Nausea, Denies Vomiting Musculoskeletal: no symptoms reported Skin: no symptoms reported Psychiatric/Neurological: No Symptoms Reported Endocrine: No Symptoms Reported Hematologic/Lymphatic: No Symptoms Reported Past Uogimiz-Gjyffp-Mpstse Hx Past Med/Social Hx: Reviewed Nursing Past Med/Soc Hx Patient Social History Alcohol Use: Regular Use Alcohol Beverage of Choice: Vodka Recreational Drug Use: No Type Used: Electronic/Vapor 2nd Hand Smoke Exposure: Yes Recent Foreign Travel: No Contact w/Someone Who Travel: No Recent Infectious Disease Expo: No Recent Hopitalizations: No Past Medical History Surgeries: Yes (2004 BREAST LUMPECTOMY; HYST/BSO) Breast, Section, Hysterectomy, Oophorectomy Respiratory: No Cardiac: No Neurological: No 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 Sexually Transmitted Disease: No HIV/AIDS: No Genitourinary: Yes Bladder Infection Gastrointestinal: No Musculoskeletal: No Endocrine: No Loss of Vision: Denies Hearing Impairment: Denies Cancer: Yes (BREAST CANCER 2003--S/P LUMPECTOMY + RADIATION.) Breast What Type of Treatment Did You: Radiation, Surgical Intervention Psychosocial: No Integumentary: No Blood Disorders: No Adverse Reaction/Blood Tranf: No Family Medical History No Pertinent Family Hx Physical Exam Vital Signs Vital Signs - First Documented 08/28/19 16:00 Temp 36.0 Pulse 100 Resp 18 B/P (MAP) 138/83 (101) Capillary Refill : Less Than 3 Seconds Height, Weight, BMI Height: 5'9.00" Weight: 140lbs. oz. 63.996733qg; 20.00 BMI Method:Stated General Appearance: No Apparent Distress, WD/WN, Anxious HEENT: Normal ENT Inspection Neck: Full Range of Motion, Supple Respiratory: Lungs Clear, Normal Breath Sounds, No Respiratory Distress Cardiovascular: Regular Rate, Rhythm Gastrointestinal: Normal Bowel Sounds, Non Tender, Soft Extremity: Normal Inspection, Normal Range of Motion Neurologic/Psychiatric: Alert, Oriented x3, No Motor/Sensory Deficits Skin: Normal Color, Warm/Dry Progress/Results/Core Measures Results/Orders Lab Results Laboratory Tests Test 08/28/19 17:20 Range/Units White Blood Count 9.6 4.3-11.0 10^3/uL Red Blood Count 4.55 4.35-5.85 10^6/uL Hemoglobin 13.2 11.5-16.0 G/DL Hematocrit 41 35-52 % Mean Corpuscular Volume 89 80-99 FL Mean Corpuscular Hemoglobin 29 25-34 PG Mean Corpuscular Hemoglobin Concent 33 32-36 G/DL Red Cell Distribution Width 13.3 10.0-14.5 % Platelet Count 230 130-400 10^3/uL Mean Platelet Volume 9.8 7.4-10.4 FL Neutrophils (%) (Auto) 83 H 42-75 % Lymphocytes (%) (Auto) 12 12-44 % Monocytes (%) (Auto) 5 0-12 % Eosinophils (%) (Auto) 0 0-10 % Basophils (%) (Auto) 0 0-10 % Neutrophils # (Auto) 7.9 H 1.8-7.8 X 10^3 Lymphocytes # (Auto) 1.1 1.0-4.0 X 10^3 Monocytes # (Auto) 0.5 0.0-1.0 X 10^3 Eosinophils # (Auto) 0.0 0.0-0.3 10^3/uL Basophils # (Auto) 0.0 0.0-0.1 10^3/uL Sodium Level 142 135-145 MMOL/L Potassium Level 4.0 3.6-5.0 MMOL/L Carbon Dioxide Level 19 L 21-32 MMOL/L Anion Gap 12 5-14 MMOL/L Blood Urea Nitrogen 18 7-18 MG/DL Creatinine 0.62 0.60-1.30 MG/DL Estimat Glomerular Filtration Rate > 60 BUN/Creatinine Ratio 29 Glucose Level 92 70-105 MG/DL Calcium Level 8.9 8.5-10.1 MG/DL Corrected Calcium 8.7 8.5-10.1 MG/DL Magnesium Level 1.7 1.6-2.4 MG/DL Total Bilirubin 0.4 0.1-1.0 MG/DL Aspartate Amino Transf (AST/SGOT) 14 5-34 U/L Alanine Aminotransferase (ALT/SGPT) 14 0-55 U/L Alkaline Phosphatase 69 40-136 U/L Myoglobin 21.1 10.0-92.0 NG/ML Troponin I < 0.028 <0.028 NG/ML Total Protein 6.6 6.4-8.2 GM/DL Albumin 4.3 3.2-4.5 GM/DL My Orders Orders - IRINEO PALOMO MD Cbc With Automated Diff (08/28/19 16:21) Magnesium (08/28/19 16:21) Chest 1 View, Ap/Pa Only (08/28/19 16:21) Ekg Tracing (08/28/19 16:21) Comprehensive Metabolic Panel (08/28/19 16:21) Myoglobin Serum (08/28/19 16:21) Protime With Inr (08/28/19 16:21) Partial Thromboplastin Time (08/28/19 16:21) O2 (08/28/19 16:21) Monitor-Rhythm Ecg Trace Only (08/28/19 16:21) Lipid Panel (08/29/19 06:00) Ed Iv/Invasive Line Start (08/28/19 16:21) Troponin I (08/28/19 16:21) Nitroglycerin 0.4 Mg Btl 25's (Nitrostat (08/28/19 16:30) Medications Given in ED Current Medications Medications Dose Ordered Sig/Edwar Route Start Time Stop Time Status Last Admin Dose Admin Nitroglycerin 0.4 mg UD PRN SL 08/28/19 16:30 08/28/19 16:44 0.4 MG Vital Signs/I&O 08/28/19 16:00 Temp 36.0 Pulse 100 Resp 18 B/P (MAP) 138/83 (101) Blood Pressure Mean: 101 Progress Progress Note : Time: 17:57 Progress Note The patient's EKG was unremarkable. The remainder of her workup in the emergency department was similarly benign. The patient was given a sublingual nitroglycerin with complete resolution of her discomfort. I discussed findings with the patient. I asked she follow up with her caregiver on Saturday. I dispensed the bottle of nitroglycerin for her to use at home should her chest pain recur. I asked her to call or return if she had any further problems or questions. Initial ECG Impression Date: Aug 28, 2019 Departure Impression Primary Impression: Chest pain Qualified Codes: R07.9 - Chest pain, unspecified Disposition: HOME, SELF-CARE Condition: Improved Departure-Patient Inst. Decision time for Depature: 17:59 Referrals: [facility] (PCP/Family) Primary Care Physician Patient Instructions: Chest Pain (DC) Add. Discharge Instructions: Follow-up with [facility] on Saturday. Nitroglycerin if chest pain recurs. Return if any problems or questions. All discharge instructions reviewed with patient and/or family. Voiced understanding. IRINEO PALOMO MD Aug 28, 2019 16:33
--- NOTE | 2019-08-28 17:00 | Diagnostic Imaging Report ---
EXAMINATION: Chest radiograph, portable AP view. DATE: 08/28/2019 4:52 PM hours. INDICATION: 53-year-old female, chest pain. COMPARISON: May 16, 2016. FINDINGS: Heart size and mediastinal contours are unremarkable. There is no identified pneumothorax. There is no large pleural effusion. There is no identified focal airspace consolidation. There are surgical clips overlying the left chest. IMPRESSION: No identified acute cardiopulmonary abnormality. Dictated by: Dictated on workstation # [id number]
[2019-08-28 17:28] LABS: BASOPHILS % (AUTO) 0 % (0-10); EOSINOPHILS % (AUTO) 0 % (0-10); HEMATOCRIT 41 % (35-52); HEMOGLOBIN 13.2 G/DL (11.5-16.0); LYMPHOCYTES # (AUTO) 1.1 X 10^3 (1.0-4.0); LYMPHOCYTES % (AUTO) 12 % (12-44); MEAN CORPUSCULAR HEMOGLOBIN 29 PG (25-34); MEAN CORPUSCULAR HGB CONC 33 G/DL (32-36); MEAN CORPUSCULAR VOLUME 89 FL (80-99); MEAN PLATELET VOLUME 9.8 FL (7.4-10.4); MONOCYTES # (AUTO) 0.5 X 10^3 (0.0-1.0); MONOCYTES % (AUTO) 5 % (0-12); NEUTROPHILS # (AUTO) 7.9 X 10^3 (1.8-7.8); NEUTROPHILS % (AUTO) 83 % (42-75); PLATELET COUNT 230 10^3/uL (130-400); RED CELL DISTRIBUTION WIDTH 13.3 % (10.0-14.5); WHITE BLOOD COUNT 9.6 10^3/uL (4.3-11.0)
[2019-08-28 17:47] LABS: ALANINE AMINOTRANSFERASE 14 U/L (0-55); ALBUMIN 4.3 GM/DL (3.2-4.5); ALKALINE PHOSPHATASE 69 U/L (40-136); BILIRUBIN,TOTAL 0.4 MG/DL (0.1-1.0); BUN/CREATININE RATIO 29; CALCIUM 8.9 MG/DL (8.5-10.1); CARBON DIOXIDE 19 MMOL/L (21-32); CHLORIDE 111 MMOL/L (98-107); CREATININE SERUM 0.62 MG/DL (0.60-1.30); GFR ESTIMATED > 60; GLUCOSE 92 MG/DL (70-105); MAGNESIUM 1.7 MG/DL (1.6-2.4); SODIUM 142 MMOL/L (135-145); TOTAL PROTEIN 6.6 GM/DL (6.4-8.2)
[2019-08-28 18:14] VITALS: BP 138/83
[2019-08-28 18:20] LABS: PROTHROMBIN TIME PATIENT 13.3 SEC (12.2-14.7)
[2019-08-29] MEDS ORDERED: ALPR0.5T PO (14:27)
[2019-08-29] MEDS ORDERED: PANT40TA2 PO (14:27)
[2019-08-29] MEDS ORDERED: METO-351 PO (14:27)
== END 2019-08-28 18:15 | disposition home or self-care (01) ==
LOC: EDUNIT# 15:55 → ER 15:56
DX: R07.89 Other chest pain (principal); Z85.3 Personal history of malignant neoplasm of breast; Z88.2 Allergy status to sulfonamides; Z88.1 Allergy status to other antibiotic agents; Z79.52 Long term (current) use of systemic steroids; Z77.22 Contact with and (suspected) exposure to environmental tobacco smoke (acute) (chronic); Z90.710 Acquired absence of both cervix and uterus; Z90.10 Acquired absence of unspecified breast and nipple
CPT/HCPCS: 36415; 71045; 80053; 83735; 83874; 84484; 85025; 85610; 85730; 93005; 93041

== ENCOUNTER 2019-08-29 10:46 | Emergency (ER) | payer OTHER ==
[~2019-08-29] VITALS: Ht 175 cm; Wt 65.0 kg
--- NOTE | 2019-08-29 11:14 | ED Cardiac General ---
History of Present Illness General Chief Complaint: Chest Pain Stated Complaint: CHEST PAIN Source: patient Exam Limitations: no limitations History of Present Illness Date Seen by Provider: Aug 29, 2019 Time Seen by Provider: 11:12 Initial Comments To ER with reports of chest palpitations. She states that yesterday she was here for chest pain, she was given nitroglycerin which alleviated her pain. She was sent home after an unremarkable workup in the emergency room, she took an additional nitroglycerin at about 11 PM last night without relief. She states that she is not having pain but she's having sensation of her heart "beating hard". She does report some shortness of breath. No fevers or chills. Poor appetite. No personal history of heart disease, she does sapphire but does not smoke cigarettes. She is not a diabetic, no history of hypertension, no family history of heart disease. 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 Allergies and Home Medications Allergies Coded Allergies: sulfamethoxazole (Verified Allergy, Unknown, anaphylaxis, 05/04/17) trimethoprim (Verified Allergy, Unknown, anaphylaxis, 05/04/17) Home Medications Amoxicillin 500 Mg Capsule, 1,000 MG PO TID Prescribed by: ISSAC SIDHU on 10/07/18 0859 Cefdinir 300 Mg Capsule, 300 MG PO BID Prescribed by: YENIFER LAMBERT on 12/31/16 1730 Clindamycin HCl 100 Mg Supp, 100 MG VG HS Prescribed by: MELO MACIAS on 04/28/182017 Fluconazole 200 Mg Tablet, 200 MG PO DAILY Prescribed by: MELO MACIAS on 04/28/182017 Hydrocodone/Acetaminophen 1 Each Tablet, 1 EACH PO Q6H Prescribed by: YENIFER LAMBERT on 12/31/16 1730 Ibuprofen 600 Mg Tablet, 600 MG PO 3 times a day PRN for PAIN Prescribed by: MANNY FIELD on 07/07/16 1042 Naproxen 500 Mg Tablet, 500 MG PO BID Prescribed by: MELO MACIAS on 04/28/182017 Nitrofurantoin Monohyd/M-Cryst 100 Mg Capsule, 100 MG PO BID Prescribed by: MELO MACIAS on 05/04/17 1306 Prednisone 10 Mg Tab, 40 MG PO DAILY Prescribed by: MELO MACIAS on 05/04/17 1239 Prednisone 20 Mg Tab, 40 MG PO DAILY Prescribed by: ISSAC SIDHU on 10/07/18 0859 Patient Home Medication List Home Medication List Reviewed: Yes Review of Systems Review of Systems Constitutional: see HPI EENTM: No Symptoms Reported Respiratory: See HPI, Shortness of Air Cardiovascular: See HPI, Chest Pain, Irregular Heart Rate, Palpitations Gastrointestinal: No Symptoms Reported Genitourinary: No Symptoms Reported Musculoskeletal: no symptoms reported Skin: no symptoms reported Psychiatric/Neurological: No Symptoms Reported Endocrine: No Symptoms Reported Hematologic/Lymphatic: No Symptoms Reported Past Nnnpdbs-Uimcpi-Wdajkk Hx Patient Social History Alcohol Beverage of Choice: Vodka Type Used: Electronic/Vapor 2nd Hand Smoke Exposure: Yes Recent Foreign Travel: No Contact w/Someone Who Travel: No Recent Hopitalizations: No Past Medical History Surgeries: Yes (2003 BREAST LUMPECTOMY; HYST/BSO) Breast, Section, Hysterectomy, Oophorectomy Respiratory: No Cardiac: No Neurological: No 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 Sexually Transmitted Disease: No HIV/AIDS: No Genitourinary: Yes Bladder Infection Gastrointestinal: No Musculoskeletal: No Endocrine: No Loss of Vision: Denies Hearing Impairment: Denies Cancer: Yes (BREAST CANCER 2003--S/P LUMPECTOMY + RADIATION.) Breast What Type of Treatment Did You: Radiation, Surgical Intervention Psychosocial: No Integumentary: No Blood Disorders: No Adverse Reaction/Blood Tranf: No Family Medical History No Pertinent Family Hx Physical Exam Vital Signs Vital Signs - First Documented 08/29/19 11:20 Temp 36.9 Pulse 84 Resp 16 B/P (MAP) 123/88 (100) Pulse Ox 98 O2 Delivery Room Air Capillary Refill : Height, Weight, BMI Height: 5'9.00" Weight: 140lbs. oz. 63.934430ck; 20.00 BMI Method:Stated General Appearance: No Apparent Distress, WD/WN HEENT: PERRL/EOMI, TMs Normal Neck: Full Range of Motion, Normal Inspection Respiratory: Lungs Clear, Normal Breath Sounds, No Accessory Muscle Use, No Respiratory Distress Cardiovascular: Regular Rate, Rhythm, No Murmur, Normal Peripheral Pulses Gastrointestinal: Normal Bowel Sounds, Non Tender, Soft Extremity: Normal Capillary Refill, Normal Inspection Neurologic/Psychiatric: Alert, Oriented x3 Skin: Normal Color, Warm/Dry Other comments EKG is normal sinus rhythm rate of [address] segment changes and without ectopy. Progress/Results/Core Measures Results/Orders Lab Results Laboratory Tests Test 08/29/19 11:15 08/29/19 11:30 08/29/19 14:06 Range/Units White Blood Count 6.0 4.3-11.0 10^3/uL Red Blood Count 4.71 4.35-5.85 10^6/uL Hemoglobin 13.8 11.5-16.0 G/DL Hematocrit 41 35-52 % Mean Corpuscular Volume 88 80-99 FL Mean Corpuscular Hemoglobin 29 25-34 PG Mean Corpuscular Hemoglobin Concent 33 32-36 G/DL Red Cell Distribution Width 13.3 10.0-14.5 % Platelet Count 235 130-400 10^3/uL Mean Platelet Volume 10.1 7.4-10.4 FL Neutrophils (%) (Auto) 76 H 42-75 % Lymphocytes (%) (Auto) 16 12-44 % Monocytes (%) (Auto) 8 0-12 % Eosinophils (%) (Auto) 0 0-10 % Basophils (%) (Auto) 0 0-10 % Neutrophils # (Auto) 4.5 1.8-7.8 X 10^3 Lymphocytes # (Auto) 1.0 1.0-4.0 X 10^3 Monocytes # (Auto) 0.5 0.0-1.0 X 10^3 Eosinophils # (Auto) 0.0 0.0-0.3 10^3/uL Basophils # (Auto) 0.0 0.0-0.1 10^3/uL Prothrombin Time 13.0 12.2-14.7 SEC INR Comment 1.0 0.8-1.4 Activated Partial Thromboplast Time 25 24-35 SEC D-Dimer 0.29 0.00-0.49 UG/ML Sodium Level 141 135-145 MMOL/L Potassium Level 3.7 3.6-5.0 MMOL/L Chloride Level 111 H 98-107 MMOL/L Carbon Dioxide Level 19 L 21-32 MMOL/L Anion Gap 11 5-14 MMOL/L Blood Urea Nitrogen 15 7-18 MG/DL Creatinine 0.65 0.60-1.30 MG/DL Estimat Glomerular Filtration Rate > 60 BUN/Creatinine Ratio 23 Glucose Level 131 H 70-105 MG/DL Calcium Level 9.6 8.5-10.1 MG/DL Corrected Calcium 9.2 8.5-10.1 MG/DL Magnesium Level 1.6 1.6-2.4 MG/DL Total Bilirubin 0.5 0.1-1.0 MG/DL Aspartate Amino Transf (AST/SGOT) 15 5-34 U/L Alanine Aminotransferase (ALT/SGPT) 13 0-55 U/L Alkaline Phosphatase 68 40-136 U/L Myoglobin 24.7 10.0-92.0 NG/ML Troponin I < 0.028 <0.028 NG/ML B-Type Natriuretic Peptide 32.1 <100.0 PG/ML Total Protein 6.8 6.4-8.2 GM/DL Albumin 4.5 3.2-4.5 GM/DL Lipase 15 8-78 U/L Thyroid Stimulating Hormone (TSH) 1.48 0.35-4.94 UIU/ML Free Thyroxine 1.01 0.70-1.48 NG/DL Urine Color YELLOW Urine Clarity CLEAR Urine pH 7.5 5-9 Urine Specific [place] 1.010 L 1.016-1.022 Urine Protein NEGATIVE NEGATIVE Urine Glucose (UA) NEGATIVE NEGATIVE Urine Ketones NEGATIVE NEGATIVE Urine Nitrite NEGATIVE NEGATIVE Urine Bilirubin NEGATIVE NEGATIVE Urine Urobilinogen 0.2 < = 1.0 MG/DL Urine Leukocyte Esterase TRACE NEGATIVE Urine RBC (Auto) NEGATIVE NEGATIVE Urine RBC NONE /HPF Urine WBC NONE /HPF Urine Squamous Epithelial Cells NONE /HPF Urine Crystals NONE /LPF Urine Bacteria NEGATIVE /HPF Urine Casts NONE /LPF Urine Mucus NEGATIVE /LPF Urine Culture Indicated NO Urine Opiates Screen NEGATIVE NEGATIVE Urine Oxycodone Screen NEGATIVE NEGATIVE Urine Methadone Screen NEGATIVE NEGATIVE Urine Propoxyphene Screen NEGATIVE NEGATIVE Urine Barbiturates Screen NEGATIVE NEGATIVE Ur Tricyclic Antidepressants Screen NEGATIVE NEGATIVE Urine Phencyclidine Screen NEGATIVE NEGATIVE Urine Amphetamines Screen NEGATIVE NEGATIVE Urine Methamphetamines Screen NEGATIVE NEGATIVE Urine Benzodiazepines Screen NEGATIVE NEGATIVE Urine Cocaine Screen NEGATIVE NEGATIVE Urine Cannabinoids Screen NEGATIVE NEGATIVE My Orders Orders - BRIGETTE DHALIWAL APRN Cbc With Automated Diff (08/29/19 11:05) Magnesium (08/29/19 11:05) Chest 1 View, Ap/Pa Only (08/29/19 11:05) Ekg Tracing (08/29/19 11:05) Comprehensive Metabolic Panel (08/29/19 11:05) Myoglobin Serum (08/29/19 11:05) Protime With Inr (08/29/19 11:05) Partial Thromboplastin Time (08/29/19 11:05) O2 (08/29/19 11:05) Monitor-Rhythm Ecg Trace Only (08/29/19 11:05) Lipid Panel (08/30/19 06:00) Ed Iv/Invasive Line Start (08/29/19 11:05) Lipase (08/29/19 11:05) BNP (08/29/19 11:05) Fibrin Degradation Products (08/29/19 11:05) Aspirin Chewable Tablet (Baby Aspirin Ch (08/29/19 11:15) Ua Culture If Indicated (08/29/19 11:15) Drug Screen Stat (Urine) (08/29/19 11:15) Thyroid Stimulating Hormone (08/29/19 11:15) Free T4 (Free Thyroxine) (08/29/19 11:15) Troponin I (08/29/19 11:15) Metoprolol Tartrate (Ir) Tab (Lopressor (08/29/19 12:30) Antacid Suspension (Mylanta Suspension (08/29/19 12:30) Lidocaine 2% Viscous 15 Ml (Xylocaine Vi (08/29/19 12:30) Troponin I (08/29/19 13:07) Medications Given in ED Current Medications Medications Dose Ordered Sig/Edwar Route Start Time Stop Time Status Last Admin Dose Admin Al Hydrox/Mg Hydrox/Simethicone 30 ml ONCE ONCE PO 08/29/19 12:30 08/29/19 12:31 DC 08/29/19 12:46 30 ML Aspirin 324 mg ONCE ONCE PO 08/29/19 11:15 08/29/19 11:16 DC 08/29/19 11:17 324 MG Lidocaine HCl 10 ml ONCE ONCE PO 08/29/19 12:30 08/29/19 12:31 DC 08/29/19 12:46 10 ML Vital Signs/I&O 08/29/19 08/29/19 11:20 11:20 Temp 36.9 Pulse 84 Resp 16 B/P (MAP) 123/88 (100) Pulse Ox 98 O2 Delivery Room Air Departure Communication (Admissions) Family Conversation Dr. Ellington has seen the patient in the emergency room and agrees with the plan of care, he can follow up outpatient if she would like. Patient does have a str ess test ordered by Dr. Calderon this . She states that she gets the sensation of chest pain and palpitations at night when laying down to go to sleep. She does feel anxious. I'll give her a prescription for Protonix since her symptoms were somewhat alleviated by the GI cocktail, prescription for Toprol-XL given the palpitation sensations and a prescription for alprazolam at at bedtime as needed for anxiety anxiety. Her HEART score is 1 correlating with a low risk of major adverse cardiac evens (up to1.7%) in the next 6 weeks. Appropriate for discharge with outpatient follow up. Her palpitations have resolved, her epigastric tightness persists. I gave a GI cocktail, that helped but did not completely resolve the pain. Despite constant pain since last night at 11 PM her troponin is negative this rules out acute coronary syndrome. Spoke with Dr. Ellington and he agrees, however other causes still should be found. Impression Primary Impression: Palpitations Additional Impression: Gastritis Disposition: 01 HOME, SELF-CARE Condition: Improved Departure-Patient Inst. Decision time for Depature: 13:17 Referrals: [facility] (PCP/Family) Primary Care Physician Patient Instructions: Palpitations Add. Discharge Instructions: 1. Keep her appointment with Dr. Calderon 2. Take the alprazolam one hour before bedtime. This should help with her symptoms. Medication as directed. All discharge instructions reviewed with patient and/or family. Voiced understanding. Scripts Metoprolol Succinate (Toprol Xl) 25 Mg Tab.er.24h 25 MG PO DAILY, #20 TAB Prov: BRIGETTE DHALIWAL APRN 08/29/19 Alprazolam (Xanax) 0.5 Mg Tablet 0.5 MG PO HS PRN for ANXIETY, #10 TAB Prov: BRIGETTE DHALIWAL APRN 08/29/19 Pantoprazole Sodium (Protonix) 40 Mg Tablet.dr 40 MG PO DAILY, #14 TAB Prov: BRIGETTE DHALIWAL APRN 08/29/19 Copy Copies To 1: DAISY MAN MD, PETER J APRN Aug 29, 2019 11:14
[2019-08-29] MEDS ORDERED: ASPIRIN 81 MG CHEW (CHILDREN'S ASA) PO ONE (11:15)
[2019-08-29 11:25] LABS: BASOPHILS % (AUTO) 0 % (0-10); EOSINOPHILS % (AUTO) 0 % (0-10); HEMATOCRIT 41 % (35-52); HEMOGLOBIN 13.8 G/DL (11.5-16.0); LYMPHOCYTES % (AUTO) 16 % (12-44); MEAN CORPUSCULAR HEMOGLOBIN 29 PG (25-34); MEAN CORPUSCULAR HGB CONC 33 G/DL (32-36); MEAN CORPUSCULAR VOLUME 88 FL (80-99); MEAN PLATELET VOLUME 10.1 FL (7.4-10.4); MONOCYTES # (AUTO) 0.5 X 10^3 (0.0-1.0); MONOCYTES % (AUTO) 8 % (0-12); NEUTROPHILS # (AUTO) 4.5 X 10^3 (1.8-7.8); NEUTROPHILS % (AUTO) 76 % (42-75); PLATELET COUNT 235 10^3/uL (130-400); RED CELL DISTRIBUTION WIDTH 13.3 % (10.0-14.5)
--- NOTE | 2019-08-29 11:36 | Diagnostic Imaging Report ---
INDICATION: Tachycardia. Chest pain. FINDINGS: A single view of the chest shows normal heart size and vascularity. The lungs are clear. There is no effusion or pneumothorax. IMPRESSION: Normal chest with no change from 08/28/2019. Dictated by: Dictated on workstation # [id number]
[2019-08-29 11:38] LABS: BILIRUBIN,URINE NEGATIVE (NEGATIVE); CLARITY,URINE CLEAR; COLOR,URINE YELLOW; GLUCOSE, URINE (UA) NEGATIVE (NEGATIVE); KETONES,URINE NEGATIVE (NEGATIVE); LEUKOCYTE ESTERASE ,URINE TRACE (NEGATIVE); NITRITE,URINE NEGATIVE (NEGATIVE); PH,URINE 7.5 (5-9); PROTEIN,URINE NEGATIVE (NEGATIVE)
[2019-08-29 11:46] LABS: ALANINE AMINOTRANSFERASE 13 U/L (0-55); ALBUMIN 4.5 GM/DL (3.2-4.5); ALKALINE PHOSPHATASE 68 U/L (40-136); BILIRUBIN,TOTAL 0.5 MG/DL (0.1-1.0); BUN/CREATININE RATIO 23; CALCIUM 9.6 MG/DL (8.5-10.1); CARBON DIOXIDE 19 MMOL/L (21-32); CHLORIDE 111 MMOL/L (98-107); CREATININE SERUM 0.65 MG/DL (0.60-1.30); GFR ESTIMATED > 60; GLUCOSE 131 MG/DL (70-105); LIPASE 15 U/L (8-78); MAGNESIUM 1.6 MG/DL (1.6-2.4); POTASSIUM 3.7 MMOL/L (3.6-5.0); SODIUM 141 MMOL/L (135-145); TOTAL PROTEIN 6.8 GM/DL (6.4-8.2)
[2019-08-29 11:49] LABS: AMPHETAMINE SCREEN, URINE NEGATIVE (NEGATIVE); BARBITURATE SCREEN URINE NEGATIVE (NEGATIVE); BENZODIAZEPINES SCREEN URINE NEGATIVE (NEGATIVE); CANNABINOID SCREEN, URINE NEGATIVE (NEGATIVE); COCAINE SCREEN URINE NEGATIVE (NEGATIVE); METHADONE STAT NEGATIVE (NEGATIVE); METHAMPHETAMINE SCREEN URINE S NEGATIVE (NEGATIVE); OPIATE SCREEN URINE NEGATIVE (NEGATIVE); OXYCODONE STAT NEGATIVE (NEGATIVE); PROPOXYPHENE STAT NEGATIVE (NEGATIVE); TRICYCLIC ANTIDEPRESSANTS SCRE NEGATIVE (NEGATIVE)
[2019-08-29 11:51] LABS: BACTERIA,URINE NEGATIVE /HPF
[2019-08-29 12:07] LABS: FREE T4 (FREE THYROXINE) 1.01 NG/DL (0.70-1.48)
[2019-08-29] MEDS ORDERED: ANTACID SUSP 30 ML UDC (MYLANTA) PO ONE (12:30)
[2019-08-29] MEDS ORDERED: LIDOCAINE 2% VISCOUS 15 ML UDC PO ONE (12:30)
[2019-08-29] MEDS ORDERED: meTOprolol TARTRATE 25 MG (LOPRESSOR) TABLET PO ONE (12:30)
[2019-08-29] MEDS ORDERED: ALPR0.5T PO (14:27)
[2019-08-29] MEDS ORDERED: PANT40TA2 PO (14:27)
[2019-08-29] MEDS ORDERED: METO-351 PO (14:27)
[2019-08-29 15:06] VITALS: BP 131/80
--- NOTE | 2019-08-29 17:19 | Consultation-Cardiology ---
HPI-Cardiology Cardiology Consultation: Date of Consultation 08/29/19 Date of Admission Attending Physician Admitting Physician [place] Consulting Physician Tish FLORES MD HPI: Time Seen by a Provider: 14:00 Chief Complaint: Chest pain, palpitations This is a 53-year-old lady with complains of chest pain and palpitations. She was in the ER previously 24 hours as well or chest pain. Prolonged episode of chest pain with negative serial troponin. She also complains of palpitations. She has history of vaping. No significant pertinent family history of heart d isease. She denies any other medical or cardiac issues. Chest pain is substernal some relief with nitroglycerin. Also complains of palpitations. Review of Systems-Cardiology Review of Systems Constitutional: As described under HPI; No As described under HPI, No no symptoms reported, No chills, No fever, No lightheadedness Eyes: No As described under HPI, No no symptoms reported, No blindness, No blurred vision, No contact lenses, No drainage, No decreased acuity, No foreign body sensation, No pain, No vision change Ears/Nose/Throat: No As described under HPI, No no symptoms reported, No chronic hearing loss, No ear discharge, No ear pain, No nasal drainage, No ulcerations Respiratory: No no symptoms reported; As described under HPI; No As described under HPI, No cough, No orthopnea, No shortness of breath, No SOB with excertion Cardiovascular: No no symptoms reported; As described under HPI; No As described under HPI; chest pain; No edema, No irregular heart rate, No lightheadedness; palpitations Gastrointestinal: No no symptoms reported, No As described under HPI, No abdomen distended, No abdominal pain, No blood streaked bowels, No constipation, No diarrhea, No nausea, No vomiting, No stool coloration changes Genitourinary: No As described under HPI, No burning, No dysuria, No discharge, No frequency, No flank pain, No hematuria, No urgency : Yes : No Skin: No rash, No skin related problems, No ulcerations Psychiatric/Neurological: No anxiety, No depression, No seizure, No focal w eakness, No syncope Hematologic: No bleeding abnormalities PBI-Enqatj-Alstnr Hx Patient Social History Alcohol Use: Regular Use Recreational Drug Use: No Type Used: Electronic/Vapor 2nd Hand Smoke Exposure: Yes Recent Foreign Travel: No Recent Infectious Disease Expo: No Past Medical History PMH As described under Assessment. Allergies and Home Medications Allergies Coded Allergies: sulfamethoxazole (Verified Allergy, Unknown, anaphylaxis, 05/04/17) trimethoprim (Verified Allergy, Unknown, anaphylaxis, 05/04/17) Home Medications Alprazolam 0.5 Mg Tablet, 0.5 MG PO HS PRN for ANXIETY Prescribed by: BRIGETTE DHALIWAL on 08/29/191426 Amoxicillin 500 Mg Capsule, 1,000 MG PO TID Prescribed by: ISSAC SIDHU on 10/07/18 0859 Cefdinir 300 Mg Capsule, 300 MG PO BID Prescribed by: YENIFER LAMBERT on 12/31/161729 Clindamycin HCl 100 Mg Supp, 100 MG VG HS Prescribed by: MELO MACIAS on 04/28/182017 Fluconazole 200 Mg Tablet, 200 MG PO DAILY Prescribed by: MELO MACIAS on 04/28/182017 Hydrocodone/Acetaminophen 1 Each Tablet, 1 EACH PO Q6H Prescribed by: YENIFER LAMBERT on 12/31/161729 Ibuprofen 600 Mg Tablet, 600 MG PO 3 times a day PRN for PAIN Prescribed by: MANNY FIELD on 07/07/16 104 Metoprolol Succinate 25 Mg Tab.er.24h, 25 MG PO DAILY Prescribed by: RBIGETTE DHALIWAL on 08/29/191426 Naproxen 500 Mg Tablet, 500 MG PO BID Prescribed by: MELO MACIAS on 04/28/182017 Nitrofurantoin Monohyd/M-Cryst 100 Mg Capsule, 100 MG PO BID Prescribed by: MELO MACIAS on 05/04/17 1306 Pantoprazole Sodium 40 Mg Tablet.dr, 40 MG PO DAILY Prescribed by: BRIGETTE DHALIWAL on 08/29/19 142 Prednisone 10 Mg Tab, 40 MG PO DAILY Prescribed by: MELO MACIAS on 05/04/17 1239 Prednisone 20 Mg Tab, 40 MG PO DAILY Prescribed by: ISSAC SIDHU on 10/07/18 0859 Patient Home Medication List Home Medication List Reviewed: Yes Physical Exam-Cardiology Physical Exam Vital Signs/I&O Capillary Refill : Less Than 3 Seconds Constitutional: appears stated age, AAO x 3; No apparent distress; well- developed, well-nourished HEENT: PERRL; No discharge; hearing is well preserved, oral hygience is good; No ulceration, No xanthelasmas are seen Neck: No carotid bruit; carotid pulses are 2 + bilaterally Respiratory: chest is bilaterally symmetric, lungs clear to auscultation Cardiovascular: regular rate-rhythm, S1 and S2 Gastrointestinal: soft, audible bowel sounds; No spleenomegaly Rectal: deferred Extremities: normal range of motion, non-tender, normal inspection; No clubbing, No cyanosis; no lower extremity edema bilateral; No significant edema Neurologic/Psychiatric: no motor/sensory deficits, alert, normal mood/affect, oriented x 3, power is 5/5 both on sides Skin: normal color; No rash, No ulcerations Data Review Labs ECG Impression ECG Initial ECG Rhythm: Normal Sinus Initial ECG Impression: Normal A/P-Cardiology Assessment/Admission Diagnosis Chest pain, Palpitations Plan Chest pain, negative serial troponin. Negative EKG. I can see as an outpatient and consider doing stress testing as an outpatient. Palpitations, event monitor as an outpatient. Thank you for your consultation. Please call me if you have any questions. Sanjeev Flores MD, FACP, FACC, FSCAI, FHRS, CCDS Interventional Cardiology Cardiac Electrophysiology Vascular Medicine and Endovascular Interventions Tish FLORES MD Aug 29, 2019 17:19
== END 2019-08-29 15:09 | disposition home or self-care (01) ==
LOC: EDUNIT# 10:46 → ER 10:47
DX: R00.2 Palpitations (principal); K29.70 Gastritis, unspecified, without bleeding; Z85.3 Personal history of malignant neoplasm of breast; Z88.2 Allergy status to sulfonamides; Z88.1 Allergy status to other antibiotic agents; Z79.52 Long term (current) use of systemic steroids; Z77.22 Contact with and (suspected) exposure to environmental tobacco smoke (acute) (chronic); Z90.710 Acquired absence of both cervix and uterus
CPT/HCPCS: 36415; 71045; 80053; 80306; 81000; 83690; 83735; 83874; 83880; 84439; 84443; 84484; 85025; 85379; 85610; 85730; 93005; 93041

== ENCOUNTER 2019-10-05 11:18 | Outpatient (RCR) | payer OTHER ==
[~2019-10-05 11:18] MED LIST changes: +ACHYD1T PO; +ALPR0.5T PO; -HYDR-3820 PO; +METO-351 PO; +PANT40TA2 PO
== END 2020-01-03 | disposition home or self-care (01) ==
LOC: CARD 11:18
PROVIDERS: ATTEND Internal Medicine Cardiovascular Disease
DX: R07.9 Chest pain, unspecified (principal); R00.2 Palpitations
CPT/HCPCS: 93225; 93226

== ENCOUNTER → 2019-10-21 | Outpatient (CLI) | payer OTHER ==
[~2019-10-21] MED LIST changes: -ACHYD1T PO; +HYDR-3820 PO
[2019-10-21 14:54] VITALS: BP 120/76
--- NOTE | 2019-10-21 14:54 | Cardiology Stress Test Report ---
Stress Test Report Date of Procedure/Referring: Date of Procedure: Oct 21, 2019 PCP Indra Elizabeth MD Admitting Physician Center/[facility] Indications: Palp Baseline Heart Rate: 71 Baseline Blood Pressure: Blood Pressure Systolic: 120 Blood Pressure Diastolic: 76 Baseline EKG: Baseline EKG: normal Summary/Conclusion: Summary: In summary, the patient started exercising with a baseline heart rate, blood pressure and EKG mentioned above Patient was able to exercise for a total of 2:30 minutes on Thomas protocol Maximum heart rate 175 Maximum blood pressure 157/91 Stress EKG Minimal nondiagnostic changes Recovery EKG Return to baseline Conclusion: 1. Poor exercise tolerance for 2 minutes 30 seconds on Thomas protocol, patient became tachycardic upon standing on the treadmill prior to initiating exercise but achieved her maximum heart rate within short period. 2. Minimal nondiagnostic EKG changes with exercise returned to baseline in recovery 3. Inappropriate sinus tachycardia early in exercise and with minimal exercise. INDRA ELIZABETH MD Oct 21, 2019 14:54
== END ==
LOC: CARD 12:53
PROVIDERS: ATTEND Internal Medicine Cardiovascular Disease
DX: R07.9 Chest pain, unspecified (principal); R00.2 Palpitations
CPT/HCPCS: 93017; 93306

== ENCOUNTER → 2020-06-13 | Outpatient (CLI) | payer OTHER ==
[~2020-06-13] MED LIST changes: +ACHYD1T PO; -HYDR-3820 PO
--- NOTE | 2020-06-13 20:30 | Diagnostic Imaging Report ---
EXAM: Bilateral diagnostic mammogram INDICATION: Left breast lumpectomy in 2010 COMPARISON: This study was compared to the prior exams of 07/03/2018, 06/05/2017 and 04/17/2016. The patient had a lumpectomy for carcinoma in 2010. Also she has lost approximately 30 pounds in the interval since the prior exam. FINDINGS: Both breasts do appear much smaller than noted on the prior study. The postsurgical changes involving the left breast seen previously appear stable. There is no sign of recurrent malignancy. The fibroglandular tissue in the right breast is heterogeneously dense. This does limit the sensitivity of this exam. The biopsy clip in the upper outer aspect of the right breast seen previously is again evident and no different. There are a few calcifications scattered throughout this portion of the breast. These seems similar to the prior exam. There is also a small group of microcalcifications in the anterior lateral aspect of the midportion of the right breast. These too are similar to the prior exam. There is no primary or secondary sign of malignancy noted. IMPRESSION: 1. The postsurgical changes involving the left breast appear stable. There is no evidence for malignancy in either breast. 2. The patient should have her annual bilateral screening mammogram in May 2021. ACR BI-RADS Category 1: Negative. Result letter will be mailed to the patient. Note: At least 10% of breast cancer is not imaged by mammography. Dictated by: Dictated on workstation # [id number]
== END ==
LOC: RAD 13:45
PROVIDERS: ATTEND Nurse Practitioner
DX: Z85.3 Personal history of malignant neoplasm of breast (principal); Z90.12 Acquired absence of left breast and nipple
CPT/HCPCS: 77066; G0279; 77062